=== PATIENT | female | born 1955 | race Two or more races ===

== ENCOUNTER 2019-03-11 17:18 | Inpatient (IN) | payer MEDICARE, MEDICAID ==
[~2019-03-11] VITALS: Ht 180.3 cm; Wt 68.9 kg
[2019-03-11] MEDS ORDERED: METF-414 PO (17:28)
[2019-03-11] MEDS ORDERED: SODIUM CHLORIDE 0.9% 1,000 ML IV ONE ×2 (18:23→21:47)
[2019-03-11] MEDS ORDERED: MORPHINE SULFATE 4 MG/ML CPJ (NOT FOR IM USE) IV STA (18:23)
[2019-03-11] MEDS ORDERED: ONDANSETRON HCL 4MG/2ML INJ IV STA (18:23)
[2019-03-11] MEDS ORDERED: FAMOTIDINE 20MG/2ML VIAL IV STA (18:23)
[2019-03-11 19:29] LABS: BASOPHILS % 0.3 % (0.0-2.0); EOSINOPHILS % 0.3 % (0.0-5.0); HEMATOCRIT. 37.6 % (36.0-48.0); HEMOGLOBIN. 12.4 g/dL (12.0-16.0); LYMPHOCYTES % 9.9 % (20.0-50.0); MEAN CORPUSCULAR HEMOGLOBIN 32.7 pg (28.0-32.0); MEAN CORPUSCULAR VOLUME 99.1 fL (81.0-99.0); MEAN PLATELET VOLUME 9.6 fl (7.4-10.4); MONOCYTES % 6.9 % (2.0-8.0); NEUTROPHILS % 82.6 % (40.0-76.0); PLATELET 207 x1000/uL (130-400); RED CELL DISTRIBUTION WIDTH 17.6 % (11.6-14.6)
[2019-03-11 19:30] LABS: CHLORIDE 109 mEq/L (98-107)
[2019-03-11 19:31] LABS: INR 1.4
[2019-03-11] MEDS ORDERED: ASPIRIN 325MG EC TABLET PO ONE (20:15)
[2019-03-11] MEDS ORDERED: DILTIAZEM HCL 5MG/ML 5ML VIAL IV ONE (20:15)
[2019-03-11] MEDS ORDERED: DILTIAZEM HCL 125 MG in DEXT 5% WATER 100 ML IV PRN (21:30)
[2019-03-11] MEDS ORDERED: HYDROCODONE/ACETAMINOPHEN 10/325MG TABLET PO PRN (21:30)
[2019-03-11] MEDS ORDERED: CLONIDINE 0.1MG TABLET PO PRN (21:30)
[2019-03-11] MEDS ORDERED: DIPHENHYDRAMINE 50MG/ML VIAL IV PRN (21:30)
[2019-03-11] MEDS ORDERED: MAGNESIUM/ALUMINUM HYDROXIDE/SIMETHICONE 30ML UDC PO PRN (21:30)
[2019-03-11] MEDS ORDERED: LORAZEPAM 2MG/ML CPJ IV PRN (21:30)
[2019-03-11] MEDS ORDERED: NA PHOS,M-B/NA PHOS,DI-BA ENEMA 118ML PR PRN (21:30)
[2019-03-11] MEDS ORDERED: DOCUSATE SODIUM 100MG CAPSULE PO PRN (21:30)
[2019-03-11] MEDS ORDERED: IPRATROPIUM/ALBUTEROL 0.5-3(2.5)MG/3ML NEB NEB PRN (21:30)
[2019-03-11] MEDS ORDERED: HYDRALAZINE 20MG/ML VIAL IV PRN (21:30)
[2019-03-11] MEDS ORDERED: DEXTROSE 50% WATER 50ML SYRINGE IV PRN (21:30)
[2019-03-11] MEDS ORDERED: ACETAMINOPHEN 325MG TABLET PO PRN (21:30)
[2019-03-11] MEDS ORDERED: MORPHINE SULFATE 2 MG/ML CPJ (NOT FOR IM USE) IV PRN (21:30)
[2019-03-11] MEDS ORDERED: PIPERACILLIN/TAZ 3.375G PREMIX 50 ML IV ONE (21:45)
[2019-03-11] MEDS ORDERED: KCL 10MEQ/50ML PREMIX 50 ML IV ONE (22:15)
[2019-03-11] MEDS: GUAIFENESIN 200MG/10ML SUGAR FREE UDC PO PRN (22:38)
[2019-03-11 23:18] LABS: CREATINE KINASE 52 IU/L (26-192)
[2019-03-11 23:19] LABS: CREATINE KINASE MB FRACTION < 1.0 ng/mL (0.5-3.6)
[2019-03-11 23:39] VITALS: BP 145/76
[2019-03-12] VITALS (13 sets, daily range): BP systolic 94–149; BP diastolic 54–88
[2019-03-12] MEDS: DEXT 5%/0.45% NACL 1000ML 1,000 ML IV SCH ×2 (00:37→14:43)
[2019-03-12] MEDS ORDERED: POTASSIUM CHLORIDE INJ 40 MEQ in DEXT 5% WATER 250 ML IV NR (02:00)
[2019-03-12] MEDS: INSULIN LISPRO 100 UNITS/ML SUBCUT SCH ×3 (05:59→16:27)
[2019-03-12] MEDS: BLOOD SUGAR DIAGNOSTIC STRIP TEST SCH ×3 (05:59→16:27)
[2019-03-12] MEDS: SODIUM CHLORIDE 0.9% INJ 3ML FLUSH IVF SCH ×3 (06:00→22:28)
[2019-03-12] MEDS ORDERED: DILTIAZEM HCL 5MG/ML 5ML VIAL IV ONE (06:30)
[2019-03-12] MEDS: DILTIAZEM HCL 125 MG in DEXT 5% WATER 100 ML IV SCH (06:42)
[2019-03-12] MEDS ORDERED: SKIN ADHESIVE 0.7 GM EA TOP ONE (06:47)
[2019-03-12] MEDS ORDERED: BUPIVACAINE HCL 0.5% (5MG/ML) 50ML ONE (06:47)
[2019-03-12 07:21] LABS: HEMATOCRIT. 35.4 % (36.0-48.0); HEMOGLOBIN. 11.6 g/dL (12.0-16.0); MEAN CORPUSCULAR HEMOGLOBIN 32.6 pg (28.0-32.0); MEAN CORPUSCULAR VOLUME 99.3 fL (81.0-99.0); MEAN PLATELET VOLUME 9.6 fl (7.4-10.4); PLATELET 181 x1000/uL (130-400); RED BLOOD CELL COUNT 3.57 mill/uL (4.2-5.4); RED CELL DISTRIBUTION WIDTH 17.2 % (11.6-14.6)
[2019-03-12] MEDS ORDERED: DIATR MEGLU/DIATRIZOATE SOLN 30ML PO SCH (07:30)
[2019-03-12 07:35] LABS: CHLORIDE 109 mEq/L (98-107)
[2019-03-12] MEDS ORDERED: DIATR MEGLU/DIATRIZOATE SOLN 120ML ONE (07:51)
[2019-03-12 07:54] LABS: LDL CHOLESTEROL 86 mg/dL (5-100)
[2019-03-12 07:55] LABS: CREATINE KINASE 53 IU/L (26-192)
[2019-03-12 07:56] LABS: T4 FREE 1.42 ng/dL (0.76-1.46)
[2019-03-12 07:58] LABS: CREATINE KINASE MB FRACTION < 1.0 ng/mL (0.5-3.6); HDL CHOLESTEROL 23 mg/dL (40-59)
[2019-03-12 12:16] LABS: PLATELET ESTIMATE NORMAL
[2019-03-12] MEDS: ENOXAPARIN 40MG/0.4ML SYR SUBCUT SCH (13:08)
[2019-03-13] VITALS (12 sets, daily range): BP systolic 95–137; BP diastolic 42–83
[2019-03-13] MEDS: INSULIN LISPRO 100 UNITS/ML SUBCUT SCH ×4 (00:18→17:23)
[2019-03-13] MEDS: DEXT 5%/0.45% NACL 1000ML 1,000 ML IV SCH ×2 (04:01→19:03)
[2019-03-13] MEDS: SODIUM CHLORIDE 0.9% INJ 3ML FLUSH IVF SCH ×3 (05:04→21:03)
[2019-03-13] MEDS: DILTIAZEM HCL 125 MG in DEXT 5% WATER 100 ML IV SCH (05:04)
[2019-03-13] MEDS: BLOOD SUGAR DIAGNOSTIC STRIP TEST SCH ×4 (05:50→17:24)
[2019-03-13] MEDS ORDERED: DILTIAZEM HCL 125 MG in DEXT 5% WATER 100 ML IV SCH (06:31)
[2019-03-13 07:02] LABS: HEMOGLOBIN. 10.4 g/dL (12.0-16.0); MEAN CORPUSCULAR HEMOGLOBIN 32.6 pg (28.0-32.0); MEAN CORPUSCULAR VOLUME 97.2 fL (81.0-99.0); MEAN PLATELET VOLUME 9.2 fl (7.4-10.4); PLATELET 175 x1000/uL (130-400); RED BLOOD CELL COUNT 3.19 mill/uL (4.2-5.4); RED CELL DISTRIBUTION WIDTH 16.6 % (11.6-14.6)
[2019-03-13] MEDS: PANTOPRAZOLE 40MG DR TABLET PO SCH (07:05)
[2019-03-13] MEDS: DILTIAZEM HCL 30MG TABLET PO SCH ×3 (07:06→21:03)
[2019-03-13] MEDS: ENOXAPARIN 40MG/0.4ML SYR SUBCUT SCH (08:04)
[2019-03-13] MEDS: GUAIFENESIN 200MG/10ML SUGAR FREE UDC PO PRN ×2 (08:07→19:25)
[2019-03-13 13:47] LABS: PLATELET ESTIMATE NORMAL
[2019-03-13 14:09] LABS: GAMMA GLUTAMYL TRANSPEPTIDASE 137 IU/L (7-32)
[2019-03-13 14:12] LABS: TOTAL IRON BINDING CAPACITY 174 ug/dL (250-450)
[2019-03-13 14:22] LABS: FERRITIN 292 ng/mL (10-291); HEPATITIS B SURFACE AB < 3.1 mIU/mL
[2019-03-13 14:33] LABS: HEPATITIS B SURFACE ANTIGEN NEGATIVE
[2019-03-13 14:37] LABS: VITAMIN B12 SERUM 1463 pg/mL (211-911)
[2019-03-13 15:02] LABS: HEPATITIS A AB IGM NEGATIVE (NEGATIVE)
[2019-03-13] MEDS ORDERED: POTASSIUM CHLORIDE 20MEQ TABLET SR PO NR (18:00)
[2019-03-13] MEDS: SUCRALFATE 1 G/10 ML UDC PO SCH (21:03)
[2019-03-14] VITALS (11 sets, daily range): BP systolic 92–138; BP diastolic 54–81
[2019-03-14] MEDS: INSULIN LISPRO 100 UNITS/ML SUBCUT SCH ×4 (06:00→16:58)
[2019-03-14] MEDS: BLOOD SUGAR DIAGNOSTIC STRIP TEST SCH ×4 (06:00→16:55)
[2019-03-14] MEDS: SUCRALFATE 1 G/10 ML UDC PO SCH ×5 (06:12→21:34)
[2019-03-14] MEDS: PANTOPRAZOLE 40MG DR TABLET PO SCH (06:13)
[2019-03-14] MEDS: DEXT 5%/0.45% NACL 1000ML 1,000 ML IV SCH ×2 (06:14→21:40)
[2019-03-14] MEDS: DILTIAZEM HCL 30MG TABLET PO SCH ×3 (06:14→21:34)
[2019-03-14] MEDS: SODIUM CHLORIDE 0.9% INJ 3ML FLUSH IVF SCH ×2 (06:14→14:00)
[2019-03-14 07:18] LABS: CHLORIDE 111 mEq/L (98-107)
[2019-03-14 07:46] LABS: BASOPHILS % 0.1 % (0.0-2.0); EOSINOPHILS % 3.9 % (0.0-5.0); HEMATOCRIT. 31.7 % (36.0-48.0); HEMOGLOBIN. 10.7 g/dL (12.0-16.0); LYMPHOCYTES % 7.3 % (20.0-50.0); MEAN CORPUSCULAR HEMOGLOBIN 32.6 pg (28.0-32.0); MEAN PLATELET VOLUME 9.2 fl (7.4-10.4); NEUTROPHILS % 82.7 % (40.0-76.0); PLATELET 176 x1000/uL (130-400); RED BLOOD CELL COUNT 3.27 mill/uL (4.2-5.4); RED CELL DISTRIBUTION WIDTH 16.4 % (11.6-14.6)
[2019-03-14] MEDS: ENOXAPARIN 40MG/0.4ML SYR SUBCUT SCH (08:02)
[2019-03-14] MEDS: GUAIFENESIN 200MG/10ML SUGAR FREE UDC PO PRN ×2 (08:36→21:45)
[2019-03-14] MEDS: ONDANSETRON HCL 4MG/2ML INJ IV PRN ×2 (21:39→21:40)
[2019-03-15] VITALS (9 sets, daily range): BP systolic 102–138; BP diastolic 50–87
[2019-03-15] MEDS: SODIUM CHLORIDE 0.9% INJ 3ML FLUSH IVF SCH ×3 (06:00→22:00)
[2019-03-15] MEDS: INSULIN LISPRO 100 UNITS/ML SUBCUT SCH ×4 (06:00→17:11)
[2019-03-15] MEDS: DILTIAZEM HCL 30MG TABLET PO SCH ×3 (06:00→22:00)
[2019-03-15] MEDS: BLOOD SUGAR DIAGNOSTIC STRIP TEST SCH ×4 (06:00→17:11)
[2019-03-15] MEDS: SUCRALFATE 1 G/10 ML UDC PO SCH ×4 (06:50→21:59)
[2019-03-15] MEDS: PANTOPRAZOLE 40MG DR TABLET PO SCH (06:50)
[2019-03-15 08:54] LABS: CHLORIDE 113 mEq/L (98-107)
[2019-03-15 09:03] LABS: INR 1.3; PARTIAL THROMBOPLASTIN TIME 34.7 sec (23.4-31.0); PROTHROMBIN TIME 13.1 sec (9.6-11.0)
[2019-03-15 09:07] LABS: FOLATE HEMATOCRIT 33.1 % (34.0-46.6)
[2019-03-15 09:07] LABS: CA 19-9 26 U/mL (0-35)
[2019-03-15 10:12] LABS: BASOPHILS % 0.3 % (0.0-2.0); EOSINOPHILS % 5.1 % (0.0-5.0); HEMATOCRIT. 35.7 % (36.0-48.0); HEMOGLOBIN. 11.7 g/dL (12.0-16.0); LYMPHOCYTES % 14.9 % (20.0-50.0); MEAN CORPUSCULAR HEMOGLOBIN 32.8 pg (28.0-32.0); MEAN CORPUSCULAR VOLUME 100.2 fL (81.0-99.0); MEAN PLATELET VOLUME 9.5 fl (7.4-10.4); MONOCYTES % 8.4 % (2.0-8.0); NEUTROPHILS % 71.3 % (40.0-76.0); PLATELET 172 x1000/uL (130-400); RED BLOOD CELL COUNT 3.56 mill/uL (4.2-5.4); RED CELL DISTRIBUTION WIDTH 17.3 % (11.6-14.6)
[2019-03-15] MEDS: DEXT 5%/0.45% NACL 1000ML 1,000 ML IV SCH ×2 (10:38→21:59)
[2019-03-15] MEDS ORDERED: FENTANYL CITRATE/PF 50MCG/ML 2ML VIAL ONE (12:57)
[2019-03-15] MEDS ORDERED: MIDAZOLAM HCL 5 MG/5 ML VIAL ONE (12:57)
[2019-03-15] MEDS ORDERED: MIDAZOLAM HCL 5 MG/5 ML VIAL IV PRN (13:00)
[2019-03-15] MEDS ORDERED: FENTANYL CITRATE/PF 50MCG/ML 2ML VIAL IV PRN (13:01)
[2019-03-15] MEDS ORDERED: SIMETHICONE 40 MG/0.6 ML 30ML ONE (13:02)
[2019-03-15 14:12] LABS: FOLATE RBC 1640 ng/mL (>498)
[2019-03-15] MEDS: GUAIFENESIN 200MG/10ML SUGAR FREE UDC PO PRN (17:16)
[2019-03-16] VITALS (9 sets, daily range): BP systolic 92–127; BP diastolic 45–76
[2019-03-16] MEDS: BLOOD SUGAR DIAGNOSTIC STRIP TEST SCH ×3 (00:01→12:45)
[2019-03-16] MEDS: GUAIFENESIN 200MG/10ML SUGAR FREE UDC PO PRN (00:18)
[2019-03-16] MEDS: INSULIN LISPRO 100 UNITS/ML SUBCUT SCH ×3 (05:09→12:00)
[2019-03-16] MEDS: SODIUM CHLORIDE 0.9% INJ 3ML FLUSH IVF SCH ×2 (05:09→14:00)
[2019-03-16] MEDS: DILTIAZEM HCL 30MG TABLET PO SCH ×2 (05:45→14:45)
[2019-03-16] MEDS: PANTOPRAZOLE 40MG DR TABLET PO SCH (05:50)
[2019-03-16] MEDS: SUCRALFATE 1 G/10 ML UDC PO SCH ×2 (05:50→12:45)
[2019-03-16 06:13] LABS: CHLORIDE 114 mEq/L (98-107)
[2019-03-16 06:14] LABS: BASOPHILS % 0.6 % (0.0-2.0); EOSINOPHILS % 4.9 % (0.0-5.0); HEMATOCRIT. 34.6 % (36.0-48.0); HEMOGLOBIN. 11.5 g/dL (12.0-16.0); MEAN CORPUSCULAR HEMOGLOBIN 32.8 pg (28.0-32.0); MEAN CORPUSCULAR VOLUME 98.6 fL (81.0-99.0); MEAN PLATELET VOLUME 8.6 fl (7.4-10.4); MONOCYTES % 10.6 % (2.0-8.0); NEUTROPHILS % 67.9 % (40.0-76.0); PLATELET 198 x1000/uL (130-400); RED CELL DISTRIBUTION WIDTH 16.9 % (11.6-14.6)
[2019-03-16] MEDS: ONDANSETRON HCL 4MG/2ML INJ IV PRN (07:58)
[2019-03-16 08:12] LABS: MITOCHONDRIAL M2 AB <20.0 Units (0.0-20.0)
[2019-03-16] MEDS: ENOXAPARIN 40MG/0.4ML SYR SUBCUT SCH (12:45)
[2019-03-16] MEDS: DEXT 5%/0.45% NACL 1000ML 1,000 ML IV SCH (12:46)
[2019-03-29] MEDS ORDERED: OMEP20CA5 MT (11:27)
== END 2019-03-16 19:04 | disposition home or self-care (01) | DRG 392 ==
LOC: ER 17:18 → 3WST 20:41 → EDBEDREQTM 20:47 → EDBEDREQ 20:47 → ENRESERV 22:21 → 3WST 03-16 14:06
PROVIDERS: ADMIT Internal Medicine; ATTEND Internal Medicine
PROC: 0DB78ZX Excision of Stomach, Pylorus, Via Natural or Artificial Opening Endoscopic, Diagnostic (ICD-10-PCS; principal; 2019-03-15)
DX: K29.70 Gastritis, unspecified, without bleeding (principal); I31.3 Pericardial effusion (noninflammatory); E44.0 Moderate protein-calorie malnutrition; I48.91 Unspecified atrial fibrillation; E11.9 Type 2 diabetes mellitus without complications; I50.9 Heart failure, unspecified; I11.0 Hypertensive heart disease with heart failure; K21.9 Gastro-esophageal reflux disease without esophagitis; K57.90 Diverticulosis of intestine, part unspecified, without perforation or abscess without bleeding; E87.6 Hypokalemia; F20.9 Schizophrenia, unspecified; K80.20 Calculus of gallbladder without cholecystitis without obstruction; K76.0 Fatty (change of) liver, not elsewhere classified; R16.2 Hepatomegaly with splenomegaly, not elsewhere classified; K44.9 Diaphragmatic hernia without obstruction or gangrene; D64.9 Anemia, unspecified; D72.825 Bandemia; F17.200 Nicotine dependence, unspecified, uncomplicated; F41.9 Anxiety disorder, unspecified; F31.9 Bipolar disorder, unspecified; I27.20 Pulmonary hypertension, unspecified; I34.0 Nonrheumatic mitral (valve) insufficiency; J44.9 Chronic obstructive pulmonary disease, unspecified; R13.10 Dysphagia, unspecified; Z79.4 Long term (current) use of insulin; Z82.49 Family history of ischemic heart disease and other diseases of the circulatory system; Z79.899 Other long term (current) drug therapy; Z68.21 Body mass index [BMI] 21.0-21.9, adult
CPT/HCPCS: 36415; 71045; 74176; 74177; 76700; 80048; 80053; 80061; 80076; 82140; 82248; 82270; 82550; 82553; 82607; 82728; 82747; 82962; 82977; 83516; 83540; 83550; 83605; 83735; 84439; 84443; 84484; 85014; 85025; 86301; 86705; 86706; 86709; 86803; 87015; 87045; 87340; 87427; 87449; 88305; 88312; 88313; 89055; 93005; 93306; 93970; 96361; 96365; 96375; 99291; J1200; J1650; J1815; J2060; J2250; J2270; J2405; J2543; J3010; J3480; J3490; J7030; J7060; J7620; Q9963

== ENCOUNTER 2019-03-29 01:11 | Inpatient (IN) | payer MEDICARE, MEDICAID ==
[~2019-03-29] VITALS: Ht 162.6 cm; Wt 72.1 kg
[~2019-03-29 01:11] MED LIST: METF-414 PO
[2019-03-29] MEDS ORDERED: DILTIAZEM HCL 5MG/ML 5ML VIAL IV ONE (08:00)
[2019-03-29 08:17] LABS: HEMOGLOBIN. 13.9 g/dL (12.0-16.0); MEAN CORPUSCULAR HEMOGLOBIN 31.7 pg (28.0-32.0); MEAN CORPUSCULAR VOLUME 98.5 fL (81.0-99.0); MEAN PLATELET VOLUME 9.4 fl (7.4-10.4); PLATELET 193 x1000/uL (130-400); RED BLOOD CELL COUNT 4.37 mill/uL (4.2-5.4); RED CELL DISTRIBUTION WIDTH 17.3 % (11.6-14.6)
[2019-03-29 08:25] LABS: CHLORIDE 107 mEq/L (98-107); INR 1.6; PROTHROMBIN TIME 16.7 sec (9.6-11.0)
[2019-03-29] MEDS ORDERED: LEVOFLOXACIN 750MG PREMIX 150 ML IV ONE (08:30)
[2019-03-29] MEDS ORDERED: DILTIAZEM HCL 60MG TABLET PO ONE (08:30)
[2019-03-29] MEDS ORDERED: BENZONATATE 100MG CAPSULE PO ONE (08:30)
[2019-03-29 08:48] LABS: PLATELET ESTIMATE NORMAL
[2019-03-29] MEDS ORDERED: FUROSEMIDE 40MG/4ML VIAL IVP ONE (09:15)
[2019-03-29 10:40] VITALS: BP 97/66
[2019-03-29] MEDS ORDERED: OMEP20CA14 MT (11:27)
[2019-03-29] MEDS ORDERED: RISP2TAB22 MT (11:27)
[2019-03-29] MEDS ORDERED: ASPI-1158 MT (11:27)
[2019-03-29] MEDS ORDERED: FERR325T6 MT (11:27)
[2019-03-29] MEDS ORDERED: DILT30TA3 MT (11:27)
[2019-03-29] MEDS ORDERED: CLOP75TA33 MT (11:27)
[2019-03-29 12:00] VITALS: BP 96/59
[2019-03-29] MEDS ORDERED: CLONIDINE 0.1MG TABLET PO PRN (13:30)
[2019-03-29] MEDS ORDERED: ACETAMINOPHEN 325MG TABLET PO PRN (13:30)
[2019-03-29] MEDS ORDERED: HYDROCODONE/ACETAMINOPHEN 5/325MG TABLET PO PRN (13:30)
[2019-03-29] MEDS ORDERED: IPRATROPIUM/ALBUTEROL 0.5-3(2.5)MG/3ML NEB HHN PRN (13:30)
[2019-03-29] MEDS ORDERED: CEFTRIAXONE 1 G PREMIX 50 ML IV SCH (13:30)
[2019-03-29] MEDS ORDERED: DOCUSATE SODIUM 100MG CAPSULE PO PRN (13:30)
[2019-03-29] MEDS ORDERED: AZITHROMYCIN 500 MG in DEXT 5% WATER 250 ML IV SCH (13:30)
[2019-03-29] MEDS ORDERED: POTASSIUM CHLORIDE 20MEQ TABLET SR PO SCH (13:30)
[2019-03-29 16:00] VITALS: BP 103/59
[2019-03-29] MEDS: GUAIFENESIN 200MG/10ML SUGAR FREE UDC PO PRN (16:23)
[2019-03-29] MEDS: DILTIAZEM HCL 30MG TABLET PO SCH ×3 (16:28→23:42)
[2019-03-29] MEDS: CEFTRIAXONE 1 G PREMIX 50 ML IV SCH (16:29)
[2019-03-29] MEDS: FUROSEMIDE 40MG/4ML VIAL IVP SCH ×2 (16:29→17:15)
[2019-03-29] MEDS: AZITHROMYCIN 500 MG in DEXT 5% WATER 250 ML IV SCH (18:00)
[2019-03-29] MEDS ORDERED: DEXTROSE 50% WATER 50ML SYRINGE IV PRN (18:00)
[2019-03-29] MEDS: BLOOD SUGAR DIAGNOSTIC STRIP TEST SCH ×2 (18:09→21:00)
[2019-03-29] MEDS: METRONIDAZOLE 500 MG PREMIX 100 ML IV SCH ×2 (18:14→22:21)
[2019-03-29] MEDS: INSULIN LISPRO 100 UNITS/ML SUBCUT SCH ×2 (18:16→21:00)
[2019-03-29] MEDS: RISPERIDONE 1MG TABLET PO SCH (22:21)
[2019-03-30] VITALS (7 sets, daily range): BP systolic 91–108; BP diastolic 52–84
[2019-03-30] MEDS: FUROSEMIDE 40MG/4ML VIAL IVP SCH ×2 (05:36→17:25)
[2019-03-30] MEDS: DILTIAZEM HCL 30MG TABLET PO SCH ×3 (05:36→18:10)
[2019-03-30] MEDS: METRONIDAZOLE 500 MG PREMIX 100 ML IV SCH ×3 (05:36→21:34)
[2019-03-30] MEDS: INSULIN LISPRO 100 UNITS/ML SUBCUT SCH ×4 (06:31→21:00)
[2019-03-30] MEDS: BLOOD SUGAR DIAGNOSTIC STRIP TEST SCH ×4 (06:31→21:34)
[2019-03-30] MEDS: OMEPRAZOLE 20MG CAPSULE EXTENDED RELEASE PO SCH (07:08)
[2019-03-30] MEDS ORDERED: DILTIAZEM HCL 30MG TABLET PO SCH (09:00)
[2019-03-30 09:18] LABS: BASOPHILS % 0.2 % (0.0-2.0); EOSINOPHILS % 0.1 % (0.0-5.0); HEMATOCRIT. 38.8 % (36.0-48.0); HEMOGLOBIN. 12.4 g/dL (12.0-16.0); LYMPHOCYTES % 7.2 % (20.0-50.0); MEAN CORPUSCULAR HEMOGLOBIN 31.8 pg (28.0-32.0); MEAN CORPUSCULAR VOLUME 99.7 fL (81.0-99.0); MONOCYTES % 6.4 % (2.0-8.0); NEUTROPHILS % 86.1 % (40.0-76.0); PLATELET 106 x1000/uL (130-400); RED BLOOD CELL COUNT 3.89 mill/uL (4.2-5.4); RED CELL DISTRIBUTION WIDTH 17.2 % (11.6-14.6)
[2019-03-30 09:21] LABS: CHLORIDE 106 mEq/L (98-107)
[2019-03-30 09:29] LABS: PHOSPHORUS 2.5 mg/dL (2.5-4.9)
[2019-03-30 09:31] LABS: CREATINE KINASE 30 IU/L (26-192); CREATINE KINASE MB FRACTION < 1.0 ng/mL (0.5-3.6)
[2019-03-30] MEDS: CLOPIDOGREL 75MG TABLET PO SCH (09:35)
[2019-03-30] MEDS: POTASSIUM CHLORIDE 20MEQ TABLET SR PO SCH ×2 (09:35→17:26)
[2019-03-30] MEDS: ASPIRIN 81MG EC TABLET PO SCH (09:35)
[2019-03-30] MEDS: CEFTRIAXONE 1 G PREMIX 50 ML IV SCH (11:01)
[2019-03-30] MEDS: AZITHROMYCIN 500 MG in DEXT 5% WATER 250 ML IV SCH (11:01)
[2019-03-30] MEDS ORDERED: DIGOXIN 500MCG/2ML AMP IV NR (16:39)
[2019-03-30] MEDS ORDERED: POTASSIUM CHLORIDE 20MEQ TABLET SR PO NR ×2 (16:40→21:00)
[2019-03-30] MEDS ORDERED: MAGNESIUM 2 G PREMIX 50 ML IV NR (18:00)
[2019-03-30] MEDS: RISPERIDONE 1MG TABLET PO SCH (21:33)
[2019-03-31] VITALS (29 sets, daily range): BP systolic 76–135; BP diastolic 17–85
[2019-03-31] MEDS: DILTIAZEM HCL 30MG TABLET PO SCH ×5 (00:42→23:49)
[2019-03-31] MEDS: METRONIDAZOLE 500 MG PREMIX 100 ML IV SCH ×3 (06:00→21:51)
[2019-03-31] MEDS: GUAIFENESIN 200MG/10ML SUGAR FREE UDC PO PRN ×2 (06:08→21:14)
[2019-03-31] MEDS: FUROSEMIDE 40MG/4ML VIAL IVP SCH ×2 (06:56→17:15)
[2019-03-31] MEDS: INSULIN LISPRO 100 UNITS/ML SUBCUT SCH ×3 (08:10→21:15)
[2019-03-31] MEDS: ASPIRIN 81MG EC TABLET PO SCH (08:26)
[2019-03-31] MEDS: CLOPIDOGREL 75MG TABLET PO SCH (08:26)
[2019-03-31] MEDS: OMEPRAZOLE 20MG CAPSULE EXTENDED RELEASE PO SCH (08:26)
[2019-03-31] MEDS: POTASSIUM CHLORIDE 20MEQ TABLET SR PO SCH ×2 (08:26→17:00)
[2019-03-31] MEDS: BLOOD SUGAR DIAGNOSTIC STRIP TEST SCH ×3 (08:26→21:11)
[2019-03-31 09:58] LABS: HEMATOCRIT. 38.7 % (36.0-48.0); HEMOGLOBIN. 12.6 g/dL (12.0-16.0); MEAN CORPUSCULAR HEMOGLOBIN 32.2 pg (28.0-32.0); MEAN CORPUSCULAR VOLUME 98.6 fL (81.0-99.0); MEAN PLATELET VOLUME 9.1 fl (7.4-10.4); PLATELET 164 x1000/uL (130-400); RED BLOOD CELL COUNT 3.93 mill/uL (4.2-5.4); RED CELL DISTRIBUTION WIDTH 17.4 % (11.6-14.6)
[2019-03-31 10:06] LABS: CHLORIDE 104 mEq/L (98-107)
[2019-03-31] MEDS ORDERED: MAGNESIUM 2 G PREMIX 50 ML IV SCH (11:15)
[2019-03-31 11:45] LABS: PLATELET ESTIMATE NORMAL
[2019-03-31] MEDS ORDERED: SODIUM BICARBONATE 4% (2.4MEQ) 5ML VIAL IV ONE (13:15)
[2019-03-31] MEDS ORDERED: LIDOCAINE HCL 1% 20ML VIAL (Pyxis) INJ ONE (13:34)
[2019-03-31] MEDS: CEFTRIAXONE 1 G PREMIX 50 ML IV SCH (14:22)
[2019-03-31] MEDS: AZITHROMYCIN 500 MG in DEXT 5% WATER 250 ML IV SCH (14:23)
[2019-03-31 16:53] LABS: HEMATOCRIT. 37.2 % (36.0-48.0); MEAN CORPUSCULAR HEMOGLOBIN 31.9 pg (28.0-32.0); MEAN PLATELET VOLUME 9.8 fl (7.4-10.4); PLATELET 150 x1000/uL (130-400); RED BLOOD CELL COUNT 3.76 mill/uL (4.2-5.4)
[2019-03-31 17:24] LABS: PLATELET ESTIMATE NORMAL
[2019-03-31] MEDS ORDERED: NOREPINEPHRINE 4MG/250ML PMX 250 ML IV ONE (18:00)
[2019-03-31] MEDS ORDERED: NOREPINEPHRINE 8 MG in DEXT 5% WATER 242 ML IV PRN (18:08)
[2019-03-31] MEDS ORDERED: FUROSEMIDE 20MG/2ML VIAL IVP NR (18:15)
[2019-03-31] MEDS ORDERED: NOREPINEPHRINE 4MG in DEXT 5% WATER 250ML IV PRN (18:15)
[2019-03-31] MEDS: RISPERIDONE 1MG TABLET PO SCH (21:14)
[2019-03-31] MEDS ORDERED: NOREPINEPHRINE 16 MG in DEXT 5% WATER 234 ML IV PRN (23:15)
[2019-04-01] VITALS (84 sets, daily range): BP systolic 86–160; BP diastolic 22–110
[2019-04-01] MEDS: DILTIAZEM HCL 30MG TABLET PO SCH ×2 (06:00→12:00)
[2019-04-01] MEDS: GUAIFENESIN 200MG/10ML SUGAR FREE UDC PO PRN (06:09)
[2019-04-01] MEDS: OMEPRAZOLE 20MG CAPSULE EXTENDED RELEASE PO SCH (06:09)
[2019-04-01] MEDS: METRONIDAZOLE 500 MG PREMIX 100 ML IV SCH ×3 (06:09→22:09)
[2019-04-01 06:18] LABS: HEMATOCRIT. 36.2 % (36.0-48.0); HEMOGLOBIN. 11.8 g/dL (12.0-16.0); MEAN CORPUSCULAR HEMOGLOBIN 31.8 pg (28.0-32.0); MEAN CORPUSCULAR VOLUME 97.7 fL (81.0-99.0); MEAN PLATELET VOLUME 10.2 fl (7.4-10.4); PLATELET 183 x1000/uL (130-400); RED BLOOD CELL COUNT 3.71 mill/uL (4.2-5.4)
[2019-04-01] MEDS: BLOOD SUGAR DIAGNOSTIC STRIP TEST SCH ×4 (06:20→22:07)
[2019-04-01] MEDS: INSULIN LISPRO 100 UNITS/ML SUBCUT SCH ×4 (06:20→22:07)
[2019-04-01] MEDS: FUROSEMIDE 40MG/4ML VIAL IVP SCH (06:21)
[2019-04-01] MEDS: POTASSIUM CHLORIDE 20MEQ TABLET SR PO SCH ×2 (07:55→18:03)
[2019-04-01] MEDS: ASPIRIN 81MG EC TABLET PO SCH (07:55)
[2019-04-01] MEDS: CLOPIDOGREL 75MG TABLET PO SCH (07:55)
[2019-04-01] MEDS: AZITHROMYCIN 500 MG in DEXT 5% WATER 250 ML IV SCH (07:55)
[2019-04-01] MEDS: CEFTRIAXONE 1 G PREMIX 50 ML IV SCH (10:00)
[2019-04-01 10:30] LABS: PLATELET ESTIMATE NORMAL
[2019-04-01 11:05] LABS: BG CARBOXYHEMOGLOBIN 1.1 % (0.5-1.5); BG DEOXYHEMOGLOBIN 7.3 % (0.0-5.0); BG HCO3 ACT 22.3 mmol/L (22.0-26.0); BG METHEMOGLOBIN 0.3 % (0.0-1.5); BG OXYGEN SATURATION 92.6 % (92.0-98.5); BG OXYHEMOGLOBIN 91.3 % (94.0-97.0); BG PH 7.447 (7.350-7.450); BG PO2 66.1 mmHg (75.0-100.0); BG SAMPLE SITE RIGHT BRACHIAL; BG TOTAL HEMOGLOBIN 13.2 g/dL (12.0-18.0); BG VENT MODE ROOM AIR
[2019-04-01] MEDS ORDERED: IOHEXOL-350 100 ML BOTTLE ONE (11:59)
[2019-04-01] MEDS: VANCOMYCIN HCL 1000 MG/20 ML ORAL PO SCH ×3 (12:10→23:38)
[2019-04-01] MEDS ORDERED: DIGOXIN 500MCG/2ML AMP IV SCH (14:10)
[2019-04-01] MEDS ORDERED: PHENYLEPHRINE 40 MG in DEXT 5% WATER 246 ML IV PRN (15:00)
[2019-04-01] MEDS ORDERED: DILTIAZEM HCL 125 MG in DEXT 5% WATER 100 ML IV PRN (15:00)
[2019-04-01] MEDS: ENOXAPARIN 80MG/0.8ML SYR SUBCUT SCH ×2 (15:16→23:40)
[2019-04-01] MEDS: RISPERIDONE 1MG TABLET PO SCH (22:04)
[2019-04-02] VITALS (59 sets, daily range): BP systolic 86–134; BP diastolic 41–102
[2019-04-02] MEDS: INSULIN LISPRO 100 UNITS/ML SUBCUT SCH ×5 (05:44→21:00)
[2019-04-02] MEDS: BLOOD SUGAR DIAGNOSTIC STRIP TEST SCH ×4 (05:44→21:11)
[2019-04-02] MEDS: VANCOMYCIN HCL 1000 MG/20 ML ORAL PO SCH ×3 (06:07→18:25)
[2019-04-02] MEDS: METRONIDAZOLE 500 MG PREMIX 100 ML IV SCH ×3 (06:07→21:47)
[2019-04-02] MEDS: OMEPRAZOLE 20MG CAPSULE EXTENDED RELEASE PO SCH (06:07)
[2019-04-02 07:51] LABS: BASOPHILS % 0.2 % (0.0-2.0); EOSINOPHILS % 0.6 % (0.0-5.0); HEMATOCRIT. 36.4 % (36.0-48.0); HEMOGLOBIN. 11.5 g/dL (12.0-16.0); LYMPHOCYTES % 7.5 % (20.0-50.0); MEAN CORPUSCULAR HEMOGLOBIN 31.2 pg (28.0-32.0); MEAN CORPUSCULAR VOLUME 98.7 fL (81.0-99.0); MEAN PLATELET VOLUME 9.1 fl (7.4-10.4); MONOCYTES % 5.9 % (2.0-8.0); NEUTROPHILS % 85.8 % (40.0-76.0); PLATELET 143 x1000/uL (130-400); RED BLOOD CELL COUNT 3.69 mill/uL (4.2-5.4); RED CELL DISTRIBUTION WIDTH 17.1 % (11.6-14.6)
[2019-04-02 08:54] LABS: CLARITY URINE CLOUDY (CLEAR); COLOR URINE YELLOW (YELLOW); KETONES URINE NEGATIVE (NEGATIVE); LEUKOCYTE ESTERASE URINE 3+ (NEGATIVE); NITRITE URINE NEGATIVE (NEGATIVE); OCCULT BLOOD URINE 2+ (NEGATIVE); PROTEIN URINE TRACE (NEGATIVE); SPECIFIC GRAVITY URINE 1.014 (1.005-1.030); UROBILINOGEN URINE 0.2 E.U./dL (0.2-1.0)
[2019-04-02] MEDS: ENOXAPARIN 80MG/0.8ML SYR SUBCUT SCH ×2 (09:59→21:12)
[2019-04-02] MEDS: POTASSIUM CHLORIDE 20MEQ TABLET SR PO SCH ×2 (09:59→16:50)
[2019-04-02] MEDS: ASPIRIN 81MG EC TABLET PO SCH (09:59)
[2019-04-02] MEDS: CEFTRIAXONE 1 G PREMIX 50 ML IV SCH (10:01)
[2019-04-02] MEDS: AZITHROMYCIN 500 MG in DEXT 5% WATER 250 ML IV SCH (10:01)
[2019-04-02] MEDS: DILTIAZEM HCL 60MG TABLET PO SCH ×2 (14:00→21:31)
[2019-04-02] MEDS ORDERED: MAGNESIUM 2 G PREMIX 50 ML IV SCH (18:30)
[2019-04-02] MEDS: RISPERIDONE 1MG TABLET PO SCH (21:11)
[2019-04-02] MEDS: LORAZEPAM 0.5MG TABLET PO PRN (21:47)
[2019-04-02] MEDS: GUAIFENESIN 200MG/10ML SUGAR FREE UDC PO PRN (21:50)
[2019-04-03] VITALS (12 sets, daily range): BP systolic 92–130; BP diastolic 60–78
[2019-04-03] MEDS: METRONIDAZOLE 500 MG PREMIX 100 ML IV SCH ×2 (05:35→13:30)
[2019-04-03] MEDS: DILTIAZEM HCL 60MG TABLET PO SCH ×3 (05:36→21:36)
[2019-04-03] MEDS: VANCOMYCIN HCL 1000 MG/20 ML ORAL PO SCH ×3 (05:47→17:11)
[2019-04-03] MEDS: FAMOTIDINE 40MG TABLET PO SCH (06:32)
[2019-04-03] MEDS: GUAIFENESIN 200MG/10ML SUGAR FREE UDC PO PRN (06:58)
[2019-04-03] MEDS: INSULIN LISPRO 100 UNITS/ML SUBCUT SCH ×4 (08:00→21:00)
[2019-04-03] MEDS: BLOOD SUGAR DIAGNOSTIC STRIP TEST SCH ×4 (08:01→21:00)
[2019-04-03 08:10] LABS: HEMATOCRIT. 36.1 % (36.0-48.0); HEMOGLOBIN. 11.7 g/dL (12.0-16.0); MEAN CORPUSCULAR VOLUME 98.8 fL (81.0-99.0); PLATELET 150 x1000/uL (130-400); RED BLOOD CELL COUNT 3.65 mill/uL (4.2-5.4); RED CELL DISTRIBUTION WIDTH 16.9 % (11.6-14.6)
[2019-04-03] MEDS: ENOXAPARIN 80MG/0.8ML SYR SUBCUT SCH ×2 (09:48→21:36)
[2019-04-03] MEDS: AZITHROMYCIN 500 MG in DEXT 5% WATER 250 ML IV SCH (09:48)
[2019-04-03] MEDS: ASPIRIN 81MG EC TABLET PO SCH (09:48)
[2019-04-03] MEDS: POTASSIUM CHLORIDE 20MEQ TABLET SR PO SCH ×2 (09:48→17:11)
[2019-04-03] MEDS: CEFTRIAXONE 1 G PREMIX 50 ML IV SCH (09:51)
[2019-04-03] MEDS: LORAZEPAM 0.5MG TABLET PO PRN (09:56)
[2019-04-03 12:25] LABS: PLATELET ESTIMATE NORMAL
[2019-04-03] MEDS: DIGOXIN 500MCG/2ML AMP IV SCH (17:11)
[2019-04-03] MEDS: RISPERIDONE 1MG TABLET PO SCH (21:24)
[2019-04-03] MEDS: METRONIDAZOLE 500MG TABLET PO SCH (21:37)
[2019-04-03] MEDS ORDERED: LORAZEPAM 0.5MG TABLET PO PRN (22:30)
[2019-04-04] VITALS (11 sets, daily range): BP systolic 95–135; BP diastolic 60–86
[2019-04-04] MEDS: DILTIAZEM HCL 60MG TABLET PO SCH ×3 (05:41→21:15)
[2019-04-04] MEDS: VANCOMYCIN HCL 1000 MG/20 ML ORAL PO SCH ×5 (05:42→23:10)
[2019-04-04] MEDS: METRONIDAZOLE 500MG TABLET PO SCH ×3 (05:42→21:14)
[2019-04-04 07:00] LABS: CHLORIDE 105 mEq/L (98-107)
[2019-04-04 07:06] LABS: HEMATOCRIT. 37.1 % (36.0-48.0); MEAN CORPUSCULAR VOLUME 98.7 fL (81.0-99.0); MEAN PLATELET VOLUME 8.5 fl (7.4-10.4); PLATELET 154 x1000/uL (130-400); RED BLOOD CELL COUNT 3.76 mill/uL (4.2-5.4); RED CELL DISTRIBUTION WIDTH 16.6 % (11.6-14.6)
[2019-04-04] MEDS: BLOOD SUGAR DIAGNOSTIC STRIP TEST SCH ×4 (07:55→21:13)
[2019-04-04] MEDS: INSULIN LISPRO 100 UNITS/ML SUBCUT SCH ×4 (08:00→21:00)
[2019-04-04] MEDS: POTASSIUM CHLORIDE 20MEQ TABLET SR PO SCH ×2 (08:54→18:14)
[2019-04-04] MEDS: ASPIRIN 81MG EC TABLET PO SCH (08:54)
[2019-04-04] MEDS: FAMOTIDINE 40MG TABLET PO SCH (08:54)
[2019-04-04] MEDS: ENOXAPARIN 80MG/0.8ML SYR SUBCUT SCH ×2 (08:55→21:15)
[2019-04-04] MEDS ORDERED: AZITHROMYCIN 500 MG TABLET PO SCH (09:00)
[2019-04-04] MEDS: CEFTRIAXONE 1 G PREMIX 50 ML IV SCH (10:26)
[2019-04-04] MEDS ORDERED: MAGNESIUM 2 G PREMIX 50 ML IV SCH (11:00)
[2019-04-04 11:01] LABS: PLATELET ESTIMATE NORMAL
[2019-04-04] MEDS: DIGOXIN 500MCG/2ML AMP IV SCH (18:14)
[2019-04-04] MEDS: RISPERIDONE 1MG TABLET PO SCH (21:14)
[2019-04-05] VITALS: BP 111/56
[2019-04-05 04:00] VITALS: BP 116/75
[2019-04-05] MEDS: METRONIDAZOLE 500MG TABLET PO SCH ×3 (06:07→22:51)
[2019-04-05] MEDS: VANCOMYCIN HCL 1000 MG/20 ML ORAL PO SCH ×3 (06:08→19:01)
[2019-04-05] MEDS: DILTIAZEM HCL 60MG TABLET PO SCH ×3 (06:08→22:01)
[2019-04-05 06:30] LABS: HEMATOCRIT. 33.1 % (36.0-48.0); HEMOGLOBIN. 10.8 g/dL (12.0-16.0); MEAN CORPUSCULAR HEMOGLOBIN 31.9 pg (28.0-32.0); MEAN CORPUSCULAR VOLUME 98.1 fL (81.0-99.0); MEAN PLATELET VOLUME 8.5 fl (7.4-10.4); PLATELET 169 x1000/uL (130-400); RED BLOOD CELL COUNT 3.38 mill/uL (4.2-5.4); RED CELL DISTRIBUTION WIDTH 16.4 % (11.6-14.6)
[2019-04-05 06:59] LABS: CHLORIDE 107 mEq/L (98-107)
[2019-04-05] MEDS: BLOOD SUGAR DIAGNOSTIC STRIP TEST SCH ×4 (07:30→21:00)
[2019-04-05 08:00] VITALS: BP 108/65
[2019-04-05] MEDS: INSULIN LISPRO 100 UNITS/ML SUBCUT SCH ×4 (08:00→21:00)
[2019-04-05] MEDS: ENOXAPARIN 80MG/0.8ML SYR SUBCUT SCH ×2 (09:02→22:02)
[2019-04-05] MEDS: ASPIRIN 81MG EC TABLET PO SCH (09:02)
[2019-04-05] MEDS: POTASSIUM CHLORIDE 20MEQ TABLET SR PO SCH ×2 (09:02→19:00)
[2019-04-05] MEDS: FAMOTIDINE 40MG TABLET PO SCH (09:02)
[2019-04-05 10:00] VITALS: BP 112/49
[2019-04-05 10:23] LABS: PLATELET ESTIMATE NORMAL
[2019-04-05 11:30] VITALS: BP 115/59
[2019-04-05] MEDS: DIGOXIN 500MCG/2ML AMP IV SCH (19:00)
[2019-04-05 20:00] VITALS: BP 119/59
[2019-04-05] MEDS: RISPERIDONE 1MG TABLET PO SCH (22:01)
[2019-04-06] VITALS: BP 125/51
[2019-04-06] MEDS: VANCOMYCIN HCL 1000 MG/20 ML ORAL PO SCH ×3 (00:36→12:59)
[2019-04-06 04:00] VITALS: BP 115/67
[2019-04-06] MEDS: BLOOD SUGAR DIAGNOSTIC STRIP TEST SCH ×4 (06:12→20:49)
[2019-04-06] MEDS: DILTIAZEM HCL 60MG TABLET PO SCH ×3 (06:12→21:05)
[2019-04-06] MEDS: INSULIN LISPRO 100 UNITS/ML SUBCUT SCH ×4 (06:40→21:00)
[2019-04-06 06:59] LABS: BASOPHILS % 0.5 % (0.0-2.0); EOSINOPHILS % 2.1 % (0.0-5.0); HEMATOCRIT. 33.7 % (36.0-48.0); MEAN CORPUSCULAR VOLUME 97.8 fL (81.0-99.0); MEAN PLATELET VOLUME 8.6 fl (7.4-10.4); MONOCYTES % 10.5 % (2.0-8.0); NEUTROPHILS % 76.9 % (40.0-76.0); PLATELET 187 x1000/uL (130-400); RED BLOOD CELL COUNT 3.45 mill/uL (4.2-5.4); RED CELL DISTRIBUTION WIDTH 16.3 % (11.6-14.6)
[2019-04-06] MEDS ORDERED: FAMOTIDINE 40MG TABLET PO SCH (07:00)
[2019-04-06 07:08] LABS: CHLORIDE 109 mEq/L (98-107)
[2019-04-06 07:36] LABS: DIGOXIN 1.7 ng/mL (0.9-2.0)
[2019-04-06 08:00] VITALS: BP 105/56
[2019-04-06 12:00] VITALS: BP 114/49
[2019-04-06] MEDS: POTASSIUM CHLORIDE 20MEQ TABLET SR PO SCH (12:59)
[2019-04-06] MEDS: ENOXAPARIN 80MG/0.8ML SYR SUBCUT SCH ×2 (12:59→20:50)
[2019-04-06] MEDS: ASPIRIN 81MG EC TABLET PO SCH (12:59)
[2019-04-06 16:00] VITALS: BP 102/51
[2019-04-06 20:00] VITALS: BP 113/80
[2019-04-06] MEDS: RISPERIDONE 1MG TABLET PO SCH (20:51)
[2019-04-07] VITALS: BP 108/58
[2019-04-07] MEDS: VANCOMYCIN HCL 1000 MG/20 ML ORAL PO SCH ×4 (00:18→17:53)
[2019-04-07] MEDS: METOCLOPRAMIDE HCL 10MG/2ML VIAL IV SCH ×4 (00:18→17:52)
[2019-04-07 04:00] VITALS: BP 121/58
[2019-04-07] MEDS: DILTIAZEM HCL 60MG TABLET PO SCH ×3 (05:55→21:31)
[2019-04-07] MEDS: FAMOTIDINE 20MG TABLET PO SCH (05:56)
[2019-04-07] MEDS: BLOOD SUGAR DIAGNOSTIC STRIP TEST SCH ×4 (05:56→20:30)
[2019-04-07] MEDS: INSULIN LISPRO 100 UNITS/ML SUBCUT SCH ×4 (06:12→20:29)
[2019-04-07 08:00] VITALS: BP 106/68
[2019-04-07 08:21] LABS: BASOPHILS % 0.7 % (0.0-2.0); HEMOGLOBIN. 11.1 g/dL (12.0-16.0); LYMPHOCYTES % 8.4 % (20.0-50.0); MEAN CORPUSCULAR HEMOGLOBIN 32.1 pg (28.0-32.0); MEAN CORPUSCULAR VOLUME 97.9 fL (81.0-99.0); MEAN PLATELET VOLUME 8.3 fl (7.4-10.4); MONOCYTES % 7.6 % (2.0-8.0); NEUTROPHILS % 81.3 % (40.0-76.0); PLATELET 217 x1000/uL (130-400); RED BLOOD CELL COUNT 3.47 mill/uL (4.2-5.4); RED CELL DISTRIBUTION WIDTH 16.4 % (11.6-14.6)
[2019-04-07 08:57] LABS: CHLORIDE 107 mEq/L (98-107)
[2019-04-07] MEDS: ASPIRIN 81MG EC TABLET PO SCH (09:28)
[2019-04-07] MEDS: ENOXAPARIN 80MG/0.8ML SYR SUBCUT SCH ×2 (09:29→20:30)
[2019-04-07] MEDS: POTASSIUM CHLORIDE 20MEQ TABLET SR PO SCH ×2 (10:36→17:52)
[2019-04-07 12:00] VITALS: BP 130/59
[2019-04-07] MEDS: MAGNESIUM GLUCONATE 500MG TABLET PO SCH (13:34)
[2019-04-07 16:00] VITALS: BP 140/56
[2019-04-07 20:00] VITALS: BP 124/63
[2019-04-07] MEDS: RISPERIDONE 1MG TABLET PO SCH (20:30)
[2019-04-08] VITALS: BP 121/60
[2019-04-08] MEDS: METOCLOPRAMIDE HCL 10MG/2ML VIAL IV SCH ×4 (00:12→17:17)
[2019-04-08] MEDS: VANCOMYCIN HCL 1000 MG/20 ML ORAL PO SCH ×3 (00:12→12:13)
[2019-04-08 04:00] VITALS: BP 113/52
[2019-04-08] MEDS: DILTIAZEM HCL 60MG TABLET PO SCH ×2 (06:33→13:32)
[2019-04-08] MEDS: FAMOTIDINE 20MG TABLET PO SCH (06:34)
[2019-04-08] MEDS: BLOOD SUGAR DIAGNOSTIC STRIP TEST SCH ×3 (06:36→16:43)
[2019-04-08] MEDS: INSULIN LISPRO 100 UNITS/ML SUBCUT SCH ×3 (07:15→16:43)
[2019-04-08 07:28] LABS: BASOPHILS % 1.1 % (0.0-2.0); EOSINOPHILS % 3.2 % (0.0-5.0); HEMATOCRIT. 33.6 % (36.0-48.0); HEMOGLOBIN. 10.9 g/dL (12.0-16.0); MEAN CORPUSCULAR HEMOGLOBIN 31.5 pg (28.0-32.0); MEAN CORPUSCULAR VOLUME 96.9 fL (81.0-99.0); MEAN PLATELET VOLUME 8.2 fl (7.4-10.4); MONOCYTES % 7.1 % (2.0-8.0); NEUTROPHILS % 75.6 % (40.0-76.0); PLATELET 235 x1000/uL (130-400); RED BLOOD CELL COUNT 3.46 mill/uL (4.2-5.4); RED CELL DISTRIBUTION WIDTH 16.1 % (11.6-14.6)
[2019-04-08 07:37] LABS: CHLORIDE 109 mEq/L (98-107)
[2019-04-08 08:00] VITALS: BP 110/57
[2019-04-08] MEDS: MAGNESIUM GLUCONATE 500MG TABLET PO SCH (09:01)
[2019-04-08] MEDS: POTASSIUM CHLORIDE 20MEQ TABLET SR PO SCH ×2 (09:02→17:17)
[2019-04-08] MEDS: ASPIRIN 81MG EC TABLET PO SCH (09:02)
[2019-04-08] MEDS: ENOXAPARIN 80MG/0.8ML SYR SUBCUT SCH (09:02)
[2019-04-08 12:00] VITALS: BP 120/67
[2019-04-08 13:51] VITALS: BP 120/67
[2019-04-08 16:00] VITALS: BP 110/58
== END 2019-04-08 18:17 | DRG 871 ==
LOC: ER 01:11 → ENRESERV 09:28 → 7WST 09:30 → EDBEDREQ 09:33 → EDBEDREQTM 09:47 → MICUNO 03-31 17:35 → MICUSO 04-01 05:30 → 5EST 04-02 17:57 → 5WST 04-05 13:01
PROVIDERS: ADMIT Internal Medicine; ATTEND Internal Medicine
PROC: 02HV33Z Insertion of Infusion Device into Superior Vena Cava, Percutaneous Approach (ICD-10-PCS; principal; 2019-03-31)
PROC: B548ZZA Ultrasonography of Superior Vena Cava, Guidance (ICD-10-PCS; 2019-03-31)
PROC: B5181ZA Fluoroscopy of Superior Vena Cava using Low Osmolar Contrast, Guidance (ICD-10-PCS; 2019-03-31)
DX: A41.4 Sepsis due to anaerobes (principal); I50.23 Acute on chronic systolic (congestive) heart failure; J18.9 Pneumonia, unspecified organism; E43 Unspecified severe protein-calorie malnutrition; R65.21 Severe sepsis with septic shock; J96.00 Acute respiratory failure, unspecified whether with hypoxia or hypercapnia; G93.41 Metabolic encephalopathy; I26.99 Other pulmonary embolism without acute cor pulmonale; I42.0 Dilated cardiomyopathy; I48.20 Chronic atrial fibrillation, unspecified; R18.8 Other ascites; J44.0 Chronic obstructive pulmonary disease with (acute) lower respiratory infection; A04.72 Enterocolitis due to Clostridium difficile, not specified as recurrent; D68.9 Coagulation defect, unspecified; I31.3 Pericardial effusion (noninflammatory); K57.92 Diverticulitis of intestine, part unspecified, without perforation or abscess without bleeding; I48.92 Unspecified atrial flutter; E11.65 Type 2 diabetes mellitus with hyperglycemia; E78.5 Hyperlipidemia, unspecified; E83.42 Hypomagnesemia; E87.6 Hypokalemia; F17.200 Nicotine dependence, unspecified, uncomplicated; F20.9 Schizophrenia, unspecified; F31.9 Bipolar disorder, unspecified; I11.0 Hypertensive heart disease with heart failure; I27.20 Pulmonary hypertension, unspecified; K80.20 Calculus of gallbladder without cholecystitis without obstruction; K44.9 Diaphragmatic hernia without obstruction or gangrene; K57.90 Diverticulosis of intestine, part unspecified, without perforation or abscess without bleeding; K21.9 Gastro-esophageal reflux disease without esophagitis; I27.29 Other secondary pulmonary hypertension; I48.0 Paroxysmal atrial fibrillation; E11.42 Type 2 diabetes mellitus with diabetic polyneuropathy; D64.9 Anemia, unspecified; I08.1 Rheumatic disorders of both mitral and tricuspid valves; I50.82 Biventricular heart failure; F41.9 Anxiety disorder, unspecified; I25.10 Atherosclerotic heart disease of native coronary artery without angina pectoris; F17.210 Nicotine dependence, cigarettes, uncomplicated; Z95.5 Presence of coronary angioplasty implant and graft; Z86.711 Personal history of pulmonary embolism; Z79.84 Long term (current) use of oral hypoglycemic drugs; Z79.82 Long term (current) use of aspirin; Z79.02 Long term (current) use of antithrombotics/antiplatelets; Z68.27 Body mass index [BMI] 27.0-27.9, adult; Z79.899 Other long term (current) drug therapy
CPT/HCPCS: 36415; 36573; 36600; 71045; 71275; 74176; 76830; 76856; 76937; 78580; 80048; 80053; 80076; 80162; 81003; 82248; 82375; 82550; 82553; 82805; 82962; 83036; 83735; 83880; 84100; 84145; 84484; 85025; 85379; 87015; 87045; 87427; 87449; 87493; 87804; 89055; 92523; 92610; 93005; 93306; 93970; 96374; 96375; 97162; 97166; 99291; 99406; A6261; C1725; J0456; J0696; J1160; J1650; J1815; J1940; J1956; J2765; J3370; J3475; J3490; J7040; J7060; Q9967

== ENCOUNTER 2019-04-08 18:15 | Inpatient (IN) | payer MEDICARE, MEDICAID ==
[~2019-04-08] VITALS: Ht 162.6 cm; Wt 74.2 kg
[~2019-04-08 18:15] MED LIST changes: +ASPI-1158 MT; +CLOP75TA33 MT; +DILT30TA3 MT; +FERR325T6 MT; +OMEP20CA14 MT; +RISP2TAB22 MT
[2019-04-08] MEDS ORDERED: DEXTROSE 50% WATER 50ML SYRINGE IV PRN (19:15)
[2019-04-08] MEDS ORDERED: CLONIDINE 0.1MG TABLET PO PRN (19:15)
[2019-04-08] MEDS ORDERED: ACETAMINOPHEN 325MG TABLET PO PRN (19:15)
[2019-04-08] MEDS ORDERED: LORAZEPAM 0.5MG TABLET PO PRN (19:15)
[2019-04-08 19:20] VITALS: BP 114/55
[2019-04-08 20:00] VITALS: BP 117/62
[2019-04-08] MEDS: INSULIN LISPRO 100 UNITS/ML SUBCUT SCH (21:00)
[2019-04-08] MEDS: BLOOD SUGAR DIAGNOSTIC STRIP TEST SCH (21:00)
[2019-04-08] MEDS: RISPERIDONE 1MG TABLET PO SCH (22:12)
[2019-04-08] MEDS: FAMOTIDINE 20MG TABLET PO SCH (22:12)
[2019-04-08] MEDS: METOCLOPRAMIDE HCL 10MG TABLET PO SCH (22:12)
[2019-04-08] MEDS: DILTIAZEM HCL 60MG TABLET PO SCH (22:13)
[2019-04-08] MEDS: ENOXAPARIN 80MG/0.8ML SYR SUBCUT SCH (22:15)
[2019-04-09] MEDS: IPRATROPIUM/ALBUTEROL 0.5-3(2.5)MG/3ML NEB HHN SCH ×6 (01:56→23:51)
[2019-04-09] MEDS: DILTIAZEM HCL 60MG TABLET PO SCH ×3 (06:07→22:00)
[2019-04-09] MEDS: BLOOD SUGAR DIAGNOSTIC STRIP TEST SCH ×4 (06:30→21:22)
[2019-04-09] MEDS: INSULIN LISPRO 100 UNITS/ML SUBCUT SCH ×4 (07:38→21:00)
[2019-04-09 08:12] VITALS: BP 119/59
[2019-04-09 08:23] LABS: CHLORIDE 108 mEq/L (98-107)
[2019-04-09] MEDS: ASPIRIN 81MG TABLET PO SCH (08:44)
[2019-04-09] MEDS: METOCLOPRAMIDE HCL 10MG TABLET PO SCH ×4 (08:44→21:21)
[2019-04-09] MEDS: POTASSIUM CHLORIDE 20MEQ TABLET SR PO SCH ×2 (08:45→17:11)
[2019-04-09] MEDS: MAGNESIUM GLUCONATE 500MG TABLET PO SCH (08:45)
[2019-04-09] MEDS: ENOXAPARIN 80MG/0.8ML SYR SUBCUT SCH ×2 (08:45→21:22)
[2019-04-09] MEDS: DOCUSATE SODIUM 100MG CAPSULE PO SCH ×2 (09:00→16:14)
[2019-04-09 09:33] LABS: BASOPHILS % 1.4 % (0.0-2.0); EOSINOPHILS % 2.7 % (0.0-5.0); HEMOGLOBIN. 11.3 g/dL (12.0-16.0); LYMPHOCYTES % 12.6 % (20.0-50.0); MEAN CORPUSCULAR HEMOGLOBIN 31.7 pg (28.0-32.0); MEAN CORPUSCULAR VOLUME 98.4 fL (81.0-99.0); MEAN PLATELET VOLUME 8.7 fl (7.4-10.4); MONOCYTES % 8.8 % (2.0-8.0); NEUTROPHILS % 74.5 % (40.0-76.0); PLATELET 229 x1000/uL (130-400); RED BLOOD CELL COUNT 3.56 mill/uL (4.2-5.4); RED CELL DISTRIBUTION WIDTH 16.5 % (11.6-14.6)
[2019-04-09] MEDS: VANCOMYCIN HCL 1000 MG/20 ML ORAL PO SCH (17:13)
[2019-04-09 20:00] VITALS: BP 119/75
[2019-04-09] MEDS: RISPERIDONE 1MG TABLET PO SCH (21:21)
[2019-04-09] MEDS: FAMOTIDINE 20MG TABLET PO SCH (21:21)
[2019-04-10] MEDS: VANCOMYCIN HCL 1000 MG/20 ML ORAL PO SCH ×4 (00:47→17:27)
[2019-04-10] MEDS: IPRATROPIUM/ALBUTEROL 0.5-3(2.5)MG/3ML NEB HHN SCH ×5 (04:29→21:16)
[2019-04-10] MEDS: DILTIAZEM HCL 60MG TABLET PO SCH ×3 (05:57→22:25)
[2019-04-10] MEDS: BLOOD SUGAR DIAGNOSTIC STRIP TEST SCH ×4 (05:57→21:00)
[2019-04-10] MEDS: INSULIN LISPRO 100 UNITS/ML SUBCUT SCH ×4 (07:00→21:00)
[2019-04-10 07:35] LABS: BASOPHILS % 1.4 % (0.0-2.0); EOSINOPHILS % 2.9 % (0.0-5.0); HEMATOCRIT. 32.4 % (36.0-48.0); HEMOGLOBIN. 10.6 g/dL (12.0-16.0); LYMPHOCYTES % 15.1 % (20.0-50.0); MEAN CORPUSCULAR HEMOGLOBIN 31.9 pg (28.0-32.0); MEAN CORPUSCULAR VOLUME 97.6 fL (81.0-99.0); MEAN PLATELET VOLUME 8.1 fl (7.4-10.4); MONOCYTES % 4.9 % (2.0-8.0); NEUTROPHILS % 75.7 % (40.0-76.0); PLATELET 239 x1000/uL (130-400); RED BLOOD CELL COUNT 3.31 mill/uL (4.2-5.4); RED CELL DISTRIBUTION WIDTH 16.3 % (11.6-14.6)
[2019-04-10 07:47] LABS: CHLORIDE 109 mEq/L (98-107)
[2019-04-10 08:31] VITALS: BP 109/64
[2019-04-10] MEDS: MAGNESIUM GLUCONATE 500MG TABLET PO SCH (08:49)
[2019-04-10] MEDS: POTASSIUM CHLORIDE 20MEQ TABLET SR PO SCH ×2 (08:49→17:23)
[2019-04-10] MEDS: ASPIRIN 81MG TABLET PO SCH (08:49)
[2019-04-10] MEDS: ENOXAPARIN 80MG/0.8ML SYR SUBCUT SCH ×2 (08:49→22:24)
[2019-04-10] MEDS: METOCLOPRAMIDE HCL 10MG TABLET PO SCH ×4 (08:49→21:23)
[2019-04-10] MEDS: DOCUSATE SODIUM 100MG CAPSULE PO SCH ×2 (09:00→17:00)
[2019-04-10 21:10] VITALS: BP 109/77
[2019-04-10] MEDS: RISPERIDONE 1MG TABLET PO SCH (21:23)
[2019-04-10] MEDS: FAMOTIDINE 20MG TABLET PO SCH (21:23)
[2019-04-10] MEDS: NYSTATIN POWDER 15GM TOP SCH (21:54)
[2019-04-11] MEDS: VANCOMYCIN HCL 1000 MG/20 ML ORAL PO SCH ×4 (00:32→17:12)
[2019-04-11] MEDS: IPRATROPIUM/ALBUTEROL 0.5-3(2.5)MG/3ML NEB HHN SCH ×5 (00:40→21:22)
[2019-04-11] MEDS: DILTIAZEM HCL 60MG TABLET PO SCH ×3 (06:41→21:45)
[2019-04-11] MEDS: BLOOD SUGAR DIAGNOSTIC STRIP TEST SCH ×4 (06:41→21:45)
[2019-04-11] MEDS: INSULIN LISPRO 100 UNITS/ML SUBCUT SCH ×4 (06:43→21:00)
[2019-04-11 07:09] LABS: CHLORIDE 107 mEq/L (98-107)
[2019-04-11 07:13] LABS: BASOPHILS % 1.4 % (0.0-2.0); EOSINOPHILS % 3.1 % (0.0-5.0); HEMOGLOBIN. 10.5 g/dL (12.0-16.0); LYMPHOCYTES % 12.4 % (20.0-50.0); MEAN CORPUSCULAR HEMOGLOBIN 31.2 pg (28.0-32.0); MEAN CORPUSCULAR VOLUME 97.7 fL (81.0-99.0); MEAN PLATELET VOLUME 8.4 fl (7.4-10.4); MONOCYTES % 7.5 % (2.0-8.0); NEUTROPHILS % 75.6 % (40.0-76.0); PLATELET 240 x1000/uL (130-400); RED BLOOD CELL COUNT 3.37 mill/uL (4.2-5.4); RED CELL DISTRIBUTION WIDTH 16.4 % (11.6-14.6)
[2019-04-11 07:16] LABS: PHOSPHORUS 3.4 mg/dL (2.5-4.9)
[2019-04-11 07:19] LABS: TOTAL IRON BINDING CAPACITY 172 ug/dL (250-450)
[2019-04-11 07:21] LABS: FOLIC ACID (FOLATE) SERUM 4.5 ng/mL (>5.38)
[2019-04-11 07:54] VITALS: BP 102/60
[2019-04-11] MEDS: DOCUSATE SODIUM 100MG CAPSULE PO SCH ×2 (09:00→16:34)
[2019-04-11] MEDS: ASPIRIN 81MG TABLET PO SCH (09:26)
[2019-04-11] MEDS: METOCLOPRAMIDE HCL 10MG TABLET PO SCH ×4 (09:26→21:44)
[2019-04-11] MEDS: POTASSIUM CHLORIDE 20MEQ TABLET SR PO SCH ×2 (09:26→16:49)
[2019-04-11] MEDS: MAGNESIUM GLUCONATE 500MG TABLET PO SCH (09:26)
[2019-04-11] MEDS: NYSTATIN POWDER 15GM TOP SCH ×2 (09:26→21:53)
[2019-04-11] MEDS: ENOXAPARIN 80MG/0.8ML SYR SUBCUT SCH ×2 (09:26→21:50)
[2019-04-11] MEDS: GUAIFENESIN-DM 200MG-20MG/10ML UDC PO PRN (12:21)
[2019-04-11] MEDS ORDERED: MAGNESIUM 2 G PREMIX 50 ML IV ONE (12:45)
[2019-04-11] MEDS ORDERED: FUROSEMIDE 40MG/4ML VIAL IVP NR (13:30)
[2019-04-11] MEDS: FOLIC ACID 1MG TABLET PO SCH (13:32)
[2019-04-11 20:00] VITALS: BP 130/72
[2019-04-11 21:27] LABS: CLARITY URINE CLEAR (CLEAR); COLOR URINE ORANGE (YELLOW); KETONES URINE NEGATIVE (NEGATIVE); LEUKOCYTE ESTERASE URINE 2+ (NEGATIVE); NITRITE URINE NEGATIVE (NEGATIVE); OCCULT BLOOD URINE 3+ (NEGATIVE); PROTEIN URINE 1+ (NEGATIVE); SPECIFIC GRAVITY URINE 1.006 (1.005-1.030); UROBILINOGEN URINE 0.2 E.U./dL (0.2-1.0)
[2019-04-11] MEDS: FAMOTIDINE 20MG TABLET PO SCH (21:44)
[2019-04-11] MEDS: RISPERIDONE 1MG TABLET PO SCH (21:45)
[2019-04-12] MEDS: IPRATROPIUM/ALBUTEROL 0.5-3(2.5)MG/3ML NEB HHN SCH ×6 (00:11→21:13)
[2019-04-12] MEDS: VANCOMYCIN HCL 1000 MG/20 ML ORAL PO SCH ×4 (00:24→17:53)
[2019-04-12] MEDS ORDERED: FUROSEMIDE 40MG/4ML VIAL IVP NR ×2 (02:00→16:00)
[2019-04-12] MEDS: GUAIFENESIN-DM 200MG-20MG/10ML UDC PO PRN (04:32)
[2019-04-12 05:36] LABS: BASOPHILS % 1.4 % (0.0-2.0); EOSINOPHILS % 3.1 % (0.0-5.0); HEMATOCRIT. 33.3 % (36.0-48.0); HEMOGLOBIN. 10.9 g/dL (12.0-16.0); LYMPHOCYTES % 15.4 % (20.0-50.0); MEAN CORPUSCULAR VOLUME 97.8 fL (81.0-99.0); MEAN PLATELET VOLUME 8.8 fl (7.4-10.4); MONOCYTES % 6.9 % (2.0-8.0); NEUTROPHILS % 73.2 % (40.0-76.0); PLATELET 240 x1000/uL (130-400); RED BLOOD CELL COUNT 3.41 mill/uL (4.2-5.4); RED CELL DISTRIBUTION WIDTH 16.7 % (11.6-14.6)
[2019-04-12] MEDS: DILTIAZEM HCL 60MG TABLET PO SCH ×3 (05:43→21:44)
[2019-04-12] MEDS: BLOOD SUGAR DIAGNOSTIC STRIP TEST SCH ×4 (05:43→21:45)
[2019-04-12] MEDS: INSULIN LISPRO 100 UNITS/ML SUBCUT SCH ×4 (05:43→21:00)
[2019-04-12 06:35] LABS: CHLORIDE 105 mEq/L (98-107)
[2019-04-12 06:48] LABS: T4 FREE 0.74 ng/dL (0.76-1.46)
[2019-04-12 08:13] VITALS: BP 151/55
[2019-04-12] MEDS: POTASSIUM CHLORIDE 20MEQ TABLET SR PO SCH ×2 (09:20→17:53)
[2019-04-12] MEDS: ASPIRIN 81MG TABLET PO SCH (09:20)
[2019-04-12] MEDS: METOCLOPRAMIDE HCL 10MG TABLET PO SCH ×4 (09:20→21:43)
[2019-04-12] MEDS: DOCUSATE SODIUM 100MG CAPSULE PO SCH ×2 (09:20→17:53)
[2019-04-12] MEDS: MAGNESIUM GLUCONATE 500MG TABLET PO SCH (09:20)
[2019-04-12] MEDS: FOLIC ACID 1MG TABLET PO SCH (09:21)
[2019-04-12] MEDS: ENOXAPARIN 80MG/0.8ML SYR SUBCUT SCH ×2 (09:21→21:45)
[2019-04-12] MEDS: NYSTATIN POWDER 15GM TOP SCH ×2 (09:22→21:45)
[2019-04-12 20:00] VITALS: BP 133/76
[2019-04-12] MEDS: FAMOTIDINE 20MG TABLET PO SCH (21:43)
[2019-04-12] MEDS: RISPERIDONE 1MG TABLET PO SCH (21:44)
[2019-04-13] MEDS: IPRATROPIUM/ALBUTEROL 0.5-3(2.5)MG/3ML NEB HHN SCH ×6 (00:39→21:30)
[2019-04-13] MEDS: DILTIAZEM HCL 60MG TABLET PO SCH ×3 (05:56→20:44)
[2019-04-13] MEDS: LEVOTHYROXINE SODIUM 25MCG TABLET PO SCH (05:56)
[2019-04-13] MEDS: VANCOMYCIN HCL 1000 MG/20 ML ORAL PO SCH ×4 (05:58→17:06)
[2019-04-13] MEDS: BLOOD SUGAR DIAGNOSTIC STRIP TEST SCH ×4 (05:58→20:43)
[2019-04-13 07:42] LABS: T4 FREE 0.7 ng/dL (0.76-1.46)
[2019-04-13 08:00] VITALS: BP 109/63
[2019-04-13] MEDS: INSULIN LISPRO 100 UNITS/ML SUBCUT SCH ×4 (09:00→21:00)
[2019-04-13] MEDS: METOCLOPRAMIDE HCL 10MG TABLET PO SCH ×4 (09:45→20:43)
[2019-04-13] MEDS: ASPIRIN 81MG TABLET PO SCH (09:45)
[2019-04-13] MEDS: DOCUSATE SODIUM 100MG CAPSULE PO SCH ×2 (09:45→17:05)
[2019-04-13] MEDS: ENOXAPARIN 80MG/0.8ML SYR SUBCUT SCH ×2 (09:45→20:44)
[2019-04-13] MEDS: POTASSIUM CHLORIDE 20MEQ TABLET SR PO SCH ×2 (09:45→17:05)
[2019-04-13] MEDS: MAGNESIUM GLUCONATE 500MG TABLET PO SCH (09:45)
[2019-04-13] MEDS: FOLIC ACID 1MG TABLET PO SCH (09:45)
[2019-04-13] MEDS: NYSTATIN POWDER 15GM TOP SCH ×2 (09:46→20:45)
[2019-04-13] MEDS ORDERED: FUROSEMIDE 40MG/4ML VIAL IVP NR (16:30)
[2019-04-13 20:00] VITALS: BP 115/59
[2019-04-13] MEDS: FAMOTIDINE 20MG TABLET PO SCH (20:43)
[2019-04-13] MEDS: RISPERIDONE 1MG TABLET PO SCH (20:43)
[2019-04-14] MEDS: VANCOMYCIN HCL 1000 MG/20 ML ORAL PO SCH ×4 (00:44→17:09)
[2019-04-14] MEDS: IPRATROPIUM/ALBUTEROL 0.5-3(2.5)MG/3ML NEB HHN SCH ×6 (01:07→19:45)
[2019-04-14] MEDS: LEVOTHYROXINE SODIUM 25MCG TABLET PO SCH (06:01)
[2019-04-14] MEDS: BLOOD SUGAR DIAGNOSTIC STRIP TEST SCH ×4 (06:01→21:48)
[2019-04-14] MEDS: DILTIAZEM HCL 60MG TABLET PO SCH ×2 (06:13→14:00)
[2019-04-14] MEDS: INSULIN LISPRO 100 UNITS/ML SUBCUT SCH ×4 (06:14→21:00)
[2019-04-14 07:00] LABS: BASOPHILS % 0.9 % (0.0-2.0); EOSINOPHILS % 2.3 % (0.0-5.0); HEMOGLOBIN. 9.7 g/dL (12.0-16.0); LYMPHOCYTES % 15.1 % (20.0-50.0); MEAN CORPUSCULAR HEMOGLOBIN 32.4 pg (28.0-32.0); MEAN CORPUSCULAR VOLUME 97.1 fL (81.0-99.0); MEAN PLATELET VOLUME 8.8 fl (7.4-10.4); MONOCYTES % 7.9 % (2.0-8.0); NEUTROPHILS % 73.8 % (40.0-76.0); PLATELET 212 x1000/uL (130-400); RED BLOOD CELL COUNT 2.99 mill/uL (4.2-5.4); RED CELL DISTRIBUTION WIDTH 16.9 % (11.6-14.6)
[2019-04-14 08:00] VITALS: BP 106/59
[2019-04-14] MEDS: MAGNESIUM GLUCONATE 500MG TABLET PO SCH (08:27)
[2019-04-14] MEDS: DOCUSATE SODIUM 100MG CAPSULE PO SCH ×2 (08:27→17:09)
[2019-04-14] MEDS: POTASSIUM CHLORIDE 20MEQ TABLET SR PO SCH (08:27)
[2019-04-14] MEDS: FOLIC ACID 1MG TABLET PO SCH (08:27)
[2019-04-14] MEDS: ASPIRIN 81MG TABLET PO SCH (08:28)
[2019-04-14] MEDS: ENOXAPARIN 80MG/0.8ML SYR SUBCUT SCH (08:28)
[2019-04-14] MEDS: METOCLOPRAMIDE HCL 10MG TABLET PO SCH ×4 (08:28→22:02)
[2019-04-14] MEDS: NYSTATIN POWDER 15GM TOP SCH ×2 (08:28→21:00)
[2019-04-14] MEDS: FUROSEMIDE 40MG/4ML VIAL IVP SCH (10:16)
[2019-04-14 20:00] VITALS: BP 97/54
[2019-04-14] MEDS ORDERED: APIXABAN 5 MG TABLET PO SCH (21:00)
[2019-04-14] MEDS: RISPERIDONE 1MG TABLET PO SCH (22:03)
[2019-04-14] MEDS: FAMOTIDINE 20MG TABLET PO SCH (22:03)
[2019-04-15] MEDS: VANCOMYCIN HCL 1000 MG/20 ML ORAL PO SCH ×4 (00:13→17:55)
[2019-04-15] MEDS: IPRATROPIUM/ALBUTEROL 0.5-3(2.5)MG/3ML NEB HHN SCH ×7 (00:46→23:48)
[2019-04-15] MEDS: BLOOD SUGAR DIAGNOSTIC STRIP TEST SCH ×4 (06:28→21:34)
[2019-04-15] MEDS: LEVOTHYROXINE SODIUM 25MCG TABLET PO SCH (06:28)
[2019-04-15] MEDS: INSULIN LISPRO 100 UNITS/ML SUBCUT SCH ×4 (06:53→21:00)
[2019-04-15 08:00] VITALS: BP 105/73
[2019-04-15 08:11] LABS: 25-HYDROXY VITAMIN D3 13 ng/mL (.)
[2019-04-15] MEDS: NYSTATIN POWDER 15GM TOP SCH ×2 (09:00→22:29)
[2019-04-15] MEDS: DILTIAZEM HCL 180MG CAPSULE CD 24HR PO SCH ×2 (09:00→09:29)
[2019-04-15] MEDS: METOCLOPRAMIDE HCL 10MG TABLET PO SCH ×4 (09:32→21:34)
[2019-04-15] MEDS: ASPIRIN 81MG TABLET PO SCH (09:32)
[2019-04-15] MEDS: FUROSEMIDE 40MG/4ML VIAL IVP SCH (09:32)
[2019-04-15] MEDS: DOCUSATE SODIUM 100MG CAPSULE PO SCH ×2 (09:32→17:55)
[2019-04-15] MEDS: FOLIC ACID 1MG TABLET PO SCH (09:32)
[2019-04-15] MEDS: MAGNESIUM GLUCONATE 500MG TABLET PO SCH (09:32)
[2019-04-15] MEDS: SPIRONOLACTONE 25MG TABLET PO SCH (14:35)
[2019-04-15 14:48] LABS: BG BASE EXCESS 4.4 mmol/L (-2.0-2.0); BG CARBOXYHEMOGLOBIN 0.6 % (0.5-1.5); BG DEOXYHEMOGLOBIN 11.4 % (0.0-5.0); BG FRACTION INSPIRED OXYGEN 21; BG OXYGEN SATURATION 88.5 % (92.0-98.5); BG PCO2 43.6 mmHg (35.0-45.0); BG PH 7.441 (7.350-7.450); BG PO2 56.5 mmHg (75.0-100.0); BG SAMPLE SITE LEFT RADIAL; BG TOTAL HEMOGLOBIN 11.6 g/dL (12.0-18.0); BG VENT MODE ROOM AIR
[2019-04-15] MEDS ORDERED: ERGOCALCIFEROL 50000UNITS CAPSULE PO SCH (16:00)
[2019-04-15 16:20] VITALS: BP 88/54
[2019-04-15] MEDS: APIXABAN 2.5 MG TABLET PO SCH (17:55)
[2019-04-15 20:00] VITALS: BP 98/55
[2019-04-15] MEDS: FAMOTIDINE 20MG TABLET PO SCH (21:34)
[2019-04-15] MEDS: RISPERIDONE 1MG TABLET PO SCH (21:34)
[2019-04-16] MEDS: VANCOMYCIN HCL 1000 MG/20 ML ORAL PO SCH ×3 (00:56→12:01)
[2019-04-16] MEDS: IPRATROPIUM/ALBUTEROL 0.5-3(2.5)MG/3ML NEB HHN SCH ×3 (03:30→11:34)
[2019-04-16 06:11] LABS: BASOPHILS % 1.5 % (0.0-2.0); EOSINOPHILS % 2.2 % (0.0-5.0); HEMATOCRIT. 27.1 % (36.0-48.0); HEMOGLOBIN. 9.5 g/dL (12.0-16.0); LYMPHOCYTES % 13.5 % (20.0-50.0); MEAN CORPUSCULAR HEMOGLOBIN 33.6 pg (28.0-32.0); MEAN CORPUSCULAR VOLUME 96.1 fL (81.0-99.0); MEAN PLATELET VOLUME 9.1 fl (7.4-10.4); MONOCYTES % 9.1 % (2.0-8.0); NEUTROPHILS % 73.7 % (40.0-76.0); PLATELET 196 x1000/uL (130-400); RED BLOOD CELL COUNT 2.82 mill/uL (4.2-5.4); RED CELL DISTRIBUTION WIDTH 16.9 % (11.6-14.6)
[2019-04-16] MEDS: BLOOD SUGAR DIAGNOSTIC STRIP TEST SCH ×2 (06:18→11:22)
[2019-04-16] MEDS: LEVOTHYROXINE SODIUM 25MCG TABLET PO SCH (06:18)
[2019-04-16 08:00] VITALS: BP 115/66
[2019-04-16] MEDS: FUROSEMIDE 40MG/4ML VIAL IVP SCH (08:53)
[2019-04-16] MEDS: DOCUSATE SODIUM 100MG CAPSULE PO SCH (08:54)
[2019-04-16] MEDS: DILTIAZEM HCL 180MG CAPSULE CD 24HR PO SCH (08:54)
[2019-04-16] MEDS: MAGNESIUM GLUCONATE 500MG TABLET PO SCH (08:54)
[2019-04-16] MEDS: FOLIC ACID 1MG TABLET PO SCH (08:54)
[2019-04-16] MEDS: APIXABAN 2.5 MG TABLET PO SCH (08:54)
[2019-04-16] MEDS: METOCLOPRAMIDE HCL 10MG TABLET PO SCH ×2 (08:54→12:01)
[2019-04-16] MEDS: INSULIN LISPRO 100 UNITS/ML SUBCUT SCH ×2 (08:54→11:22)
[2019-04-16] MEDS: NYSTATIN POWDER 15GM TOP SCH (08:56)
[2019-04-16] MEDS: SPIRONOLACTONE 25MG TABLET PO SCH (08:56)
[2019-04-16 10:55] VITALS: BP 115/66
[2019-04-16] MEDS ORDERED: FURO40TA5 MT ×2 (13:28→13:34)
[2019-04-16] MEDS ORDERED: FAMO20TA8 PO (13:28)
[2019-04-16] MEDS ORDERED: MAG500 PO (13:28)
[2019-04-16] MEDS ORDERED: APIX2.5T PO (13:28)
[2019-04-16] MEDS ORDERED: SPIR25TA PO (13:28)
[2019-04-16] MEDS ORDERED: FOLI-43 PO (13:28)
[2019-04-16] MEDS ORDERED: DILT180C66 PO (13:28)
[2019-04-16] MEDS ORDERED: DOCU-150 PO (13:28)
[2019-04-16] MEDS ORDERED: LEVO25TA7 PO (13:28)
== END 2019-04-16 16:23 | disposition home health service (06) | DRG 91 ==
PROVIDERS: ADMIT Physical Medicine & Rehabilitation Spinal Cord Injury Medicine; ATTEND Internal Medicine
DX: G92 Toxic encephalopathy (principal); A41.9 Sepsis, unspecified organism; R65.21 Severe sepsis with septic shock; I26.99 Other pulmonary embolism without acute cor pulmonale; J18.9 Pneumonia, unspecified organism; J96.00 Acute respiratory failure, unspecified whether with hypoxia or hypercapnia; I48.20 Chronic atrial fibrillation, unspecified; A04.72 Enterocolitis due to Clostridium difficile, not specified as recurrent; D68.9 Coagulation defect, unspecified; E46 Unspecified protein-calorie malnutrition; I42.9 Cardiomyopathy, unspecified; I50.22 Chronic systolic (congestive) heart failure; I31.3 Pericardial effusion (noninflammatory); J44.0 Chronic obstructive pulmonary disease with (acute) lower respiratory infection; K57.92 Diverticulitis of intestine, part unspecified, without perforation or abscess without bleeding; R18.8 Other ascites; F20.9 Schizophrenia, unspecified; I48.0 Paroxysmal atrial fibrillation; D64.9 Anemia, unspecified; E11.65 Type 2 diabetes mellitus with hyperglycemia; E27.9 Disorder of adrenal gland, unspecified; E83.42 Hypomagnesemia; E87.6 Hypokalemia; F17.210 Nicotine dependence, cigarettes, uncomplicated; F31.9 Bipolar disorder, unspecified; G62.9 Polyneuropathy, unspecified; I08.1 Rheumatic disorders of both mitral and tricuspid valves; I11.0 Hypertensive heart disease with heart failure; I25.10 Atherosclerotic heart disease of native coronary artery without angina pectoris; I27.29 Other secondary pulmonary hypertension; K44.9 Diaphragmatic hernia without obstruction or gangrene; K80.20 Calculus of gallbladder without cholecystitis without obstruction; Z95.5 Presence of coronary angioplasty implant and graft
CPT/HCPCS: 36415; 36600; 71045; 71046; 80048; 80053; 80076; 81003; 82140; 82306; 82375; 82533; 82550; 82607; 82728; 82746; 82805; 82962; 83540; 83550; 83735; 84100; 84134; 84439; 84443; 84481; 85025; 86376; 92523; 93005; 93970; 94618; 94640; 97110; 97112; 97116; 97161; 97166; 97530; 97535; C1893; J1650; J1815; J1940; J3370; J3475; J7620; J8597

== ENCOUNTER 2019-07-04 12:27 | Inpatient (IN) | payer MEDICARE, MEDICAID ==
[~2019-07-04] VITALS: Ht 157.5 cm; Wt 92.5 kg
[~2019-07-04 12:27] MED LIST changes: +ALBU2.5V13 HHN; +APIX2.5T PO; -ASPI-1158 MT; -CLOP75TA33 MT; -DILT30TA3 MT; +DOCU-150 PO; +FAMO20TA8 PO; -FERR325T6 MT; +FOLI-43 PO; +LEVO25TA7 PO; +LOPE-84 PO; +MAG500 PO; -METF-414 PO; -OMEP20CA14 MT
[2019-07-04] MEDS ORDERED: SODIUM CHLORIDE 0.9% 1000ML BAG (SEPSIS BOLUS) IV ONE (13:00)
[2019-07-04 13:27] LABS: HEMATOCRIT. 41.4 % (36.0-48.0); HEMOGLOBIN. 13.4 g/dL (12.0-16.0); MEAN CORPUSCULAR HEMOGLOBIN 31.2 pg (28.0-32.0); MEAN CORPUSCULAR VOLUME 96.2 fL (81.0-99.0); MEAN PLATELET VOLUME 7.8 fl (7.4-10.4); PLATELET 200 x1000/uL (130-400); RED CELL DISTRIBUTION WIDTH 16.8 % (11.6-14.6)
[2019-07-04 13:32] LABS: CHLORIDE 100 mEq/L (98-107)
[2019-07-04 13:33] LABS: INR 1.3; PARTIAL THROMBOPLASTIN TIME 30.5 sec (23.4-31.0); PROTHROMBIN TIME 14.5 sec (9.6-11.0)
[2019-07-04 13:58] LABS: PLATELET ESTIMATE NORMAL
[2019-07-04] MEDS ORDERED: FUROSEMIDE 40MG/4ML VIAL IVP ONE (15:15)
[2019-07-04 18:20] VITALS: BP 127/84
[2019-07-04] MEDS ORDERED: PNEUMOCOCCAL 23-VAL P-SAC VAC 0.5 ML IM ONE (19:00)
[2019-07-04] MEDS ORDERED: INFLUENZA VIRUS VACCINE(AFLURIA) 0.5ML SYR IM ONE (19:00)
[2019-07-04 20:00] VITALS: BP 122/77
[2019-07-04] MEDS: RISPERIDONE 1MG TABLET PO SCH (22:08)
[2019-07-05] VITALS: BP 113/60
[2019-07-05 04:00] VITALS: BP 149/71
[2019-07-05 07:28] LABS: BASOPHILS % 0.7 % (0.0-2.0); CHLORIDE 99 mEq/L (98-107); EOSINOPHILS % 0.6 % (0.0-5.0); HEMATOCRIT. 36.5 % (36.0-48.0); HEMOGLOBIN. 12.1 g/dL (12.0-16.0); LYMPHOCYTES % 8.9 % (20.0-50.0); MEAN CORPUSCULAR HEMOGLOBIN 31.7 pg (28.0-32.0); MEAN CORPUSCULAR VOLUME 95.8 fL (81.0-99.0); MEAN PLATELET VOLUME 7.6 fl (7.4-10.4); MONOCYTES % 10.1 % (2.0-8.0); NEUTROPHILS % 79.7 % (40.0-76.0); PLATELET 181 x1000/uL (130-400); RED BLOOD CELL COUNT 3.81 mill/uL (4.2-5.4); RED CELL DISTRIBUTION WIDTH 17.5 % (11.6-14.6)
[2019-07-05 10:00] VITALS: BP 102/51
[2019-07-05] MEDS: APIXABAN 2.5 MG TABLET PO SCH ×2 (10:23→19:26)
[2019-07-05] MEDS: FUROSEMIDE 40MG/4ML VIAL IVP SCH (10:23)
[2019-07-05] MEDS: LEVOTHYROXINE SODIUM 25MCG TABLET PO SCH (10:24)
[2019-07-05] MEDS: MAGNESIUM GLUCONATE 500MG TABLET PO SCH (10:24)
[2019-07-05] MEDS: DOCUSATE SODIUM 100MG CAPSULE PO SCH ×2 (10:24→19:27)
[2019-07-05] MEDS: FOLIC ACID 1MG TABLET PO SCH (10:24)
[2019-07-05 12:00] VITALS: BP 104/66
[2019-07-05] MEDS ORDERED: DIGOXIN 250MCG TABLET PO ONE (12:00)
[2019-07-05] MEDS: DILTIAZEM HCL 30MG TABLET PO SCH ×2 (14:00→21:57)
[2019-07-05 16:00] VITALS: BP 126/66
[2019-07-05] MEDS: DIGOXIN 125MCG TABLET PO SCH (19:27)
[2019-07-05 20:00] VITALS: BP 95/64
[2019-07-05] MEDS ORDERED: RISPERIDONE 1MG TABLET PO SCH (21:00)
[2019-07-05] MEDS: IPRATROPIUM/ALBUTEROL 0.5-3(2.5)MG/3ML NEB HHN SCH (21:06)
[2019-07-05] MEDS: RISPERIDONE 1MG TABLET PO SCH (22:04)
[2019-07-05] MEDS: FAMOTIDINE 20MG TABLET PO SCH (22:05)
[2019-07-06] VITALS: BP 106/62
[2019-07-06] MEDS: IPRATROPIUM/ALBUTEROL 0.5-3(2.5)MG/3ML NEB HHN SCH ×3 (00:39→21:25)
[2019-07-06 04:00] VITALS: BP 126/72
[2019-07-06] MEDS: DILTIAZEM HCL 30MG TABLET PO SCH ×4 (05:45→20:11)
[2019-07-06] MEDS: LEVOTHYROXINE SODIUM 25MCG TABLET PO SCH ×3 (07:40→12:20)
[2019-07-06 08:00] VITALS: BP 118/79
[2019-07-06] MEDS: FUROSEMIDE 40MG/4ML VIAL IVP SCH (08:41)
[2019-07-06] MEDS: FOLIC ACID 1MG TABLET PO SCH ×3 (08:42→12:20)
[2019-07-06] MEDS: DOCUSATE SODIUM 100MG CAPSULE PO SCH ×2 (08:42→17:00)
[2019-07-06] MEDS: MAGNESIUM GLUCONATE 500MG TABLET PO SCH ×3 (08:42→12:20)
[2019-07-06 12:00] VITALS: BP 116/73
[2019-07-06 16:00] VITALS: BP 102/74
[2019-07-06] MEDS: DIGOXIN 125MCG TABLET PO SCH (17:43)
[2019-07-06 20:00] VITALS: BP 120/69
[2019-07-06] MEDS: RISPERIDONE 1MG TABLET PO SCH (20:10)
[2019-07-06] MEDS: FAMOTIDINE 20MG TABLET PO SCH (20:11)
[2019-07-06] MEDS ORDERED: ALBUTEROL (0.5%) 2.5MG/0.5ML NEB HHN SCH (21:30)
[2019-07-07] VITALS: BP 110/71
[2019-07-07] MEDS: IPRATROPIUM/ALBUTEROL 0.5-3(2.5)MG/3ML NEB HHN SCH ×4 (01:16→21:42)
[2019-07-07 04:00] VITALS: BP 127/77
[2019-07-07] MEDS: LEVOTHYROXINE SODIUM 25MCG TABLET PO SCH (04:54)
[2019-07-07] MEDS: DILTIAZEM HCL 30MG TABLET PO SCH (04:54)
[2019-07-07 06:39] LABS: BASOPHILS % 0.9 % (0.0-2.0); EOSINOPHILS % 2.3 % (0.0-5.0); HEMATOCRIT. 35.8 % (36.0-48.0); HEMOGLOBIN. 11.5 g/dL (12.0-16.0); MEAN CORPUSCULAR HEMOGLOBIN 30.9 pg (28.0-32.0); MEAN CORPUSCULAR VOLUME 96.6 fL (81.0-99.0); MEAN PLATELET VOLUME 7.2 fl (7.4-10.4); MONOCYTES % 9.5 % (2.0-8.0); NEUTROPHILS % 78.3 % (40.0-76.0); PLATELET 154 x1000/uL (130-400); RED BLOOD CELL COUNT 3.71 mill/uL (4.2-5.4); RED CELL DISTRIBUTION WIDTH 17.3 % (11.6-14.6)
[2019-07-07 07:36] LABS: INR 1.3; PROTHROMBIN TIME 14.3 sec (9.6-11.0)
[2019-07-07 08:00] VITALS: BP 116/66
[2019-07-07] MEDS: FUROSEMIDE 40MG/4ML VIAL IVP SCH (09:04)
[2019-07-07] MEDS: DOCUSATE SODIUM 100MG CAPSULE PO SCH ×2 (09:05→16:58)
[2019-07-07] MEDS: FOLIC ACID 1MG TABLET PO SCH (09:05)
[2019-07-07] MEDS: MAGNESIUM GLUCONATE 500MG TABLET PO SCH (09:06)
[2019-07-07 12:00] VITALS: BP 110/77
[2019-07-07] MEDS: DILTIAZEM HCL 60MG TABLET PO SCH ×3 (14:00→21:29)
[2019-07-07 16:00] VITALS: BP 125/70
[2019-07-07] MEDS: DIGOXIN 125MCG TABLET PO SCH (17:56)
[2019-07-07 20:06] VITALS: BP 113/83
[2019-07-07] MEDS: FAMOTIDINE 20MG TABLET PO SCH (21:28)
[2019-07-07] MEDS: RISPERIDONE 1MG TABLET PO SCH (21:29)
[2019-07-08] VITALS (7 sets, daily range): BP systolic 110–122; BP diastolic 63–83
[2019-07-08] MEDS: IPRATROPIUM/ALBUTEROL 0.5-3(2.5)MG/3ML NEB HHN SCH ×2 (02:01→21:26)
[2019-07-08] MEDS: DILTIAZEM HCL 60MG TABLET PO SCH ×3 (06:51→22:17)
[2019-07-08] MEDS: LEVOTHYROXINE SODIUM 25MCG TABLET PO SCH (06:51)
[2019-07-08] MEDS ORDERED: LIDOCAINE HCL 1% 20ML VIAL (Pyxis) INJ ONE (08:18)
[2019-07-08] MEDS ORDERED: SODIUM BICARBONATE 4% (2.4MEQ) 5ML VIAL IV ONE (08:18)
[2019-07-08] MEDS: FUROSEMIDE 40MG/4ML VIAL IVP SCH (10:06)
[2019-07-08] MEDS: DOCUSATE SODIUM 100MG CAPSULE PO SCH ×2 (10:07→17:07)
[2019-07-08] MEDS: MAGNESIUM GLUCONATE 500MG TABLET PO SCH (10:07)
[2019-07-08] MEDS: FOLIC ACID 1MG TABLET PO SCH (10:07)
[2019-07-08] MEDS: DIGOXIN 125MCG TABLET PO SCH (17:07)
[2019-07-08] MEDS: FUROSEMIDE 40MG TABLET PO SCH (17:09)
[2019-07-08] MEDS ORDERED: DIPHENHYDRAMINE 25MG CAPSULE PO PRN (21:15)
[2019-07-08] MEDS: FAMOTIDINE 20MG TABLET PO SCH (22:17)
[2019-07-08] MEDS: RISPERIDONE 1MG TABLET PO SCH (22:17)
[2019-07-09] VITALS: BP 118/62
[2019-07-09 01:32] LABS: CHLORIDE 98 mEq/L (98-107)
[2019-07-09] MEDS: IPRATROPIUM/ALBUTEROL 0.5-3(2.5)MG/3ML NEB HHN SCH ×4 (01:49→21:37)
[2019-07-09] MEDS ORDERED: DIPHENHYDRAMINE 25MG CAPSULE PO SCH (02:15)
[2019-07-09 04:00] VITALS: BP 131/73
[2019-07-09] MEDS: LEVOTHYROXINE SODIUM 25MCG TABLET PO SCH (05:32)
[2019-07-09] MEDS: DILTIAZEM HCL 60MG TABLET PO SCH ×3 (05:32→21:46)
[2019-07-09 07:46] VITALS: BP 100/64
[2019-07-09] MEDS: DOCUSATE SODIUM 100MG CAPSULE PO SCH ×2 (09:00→17:33)
[2019-07-09] MEDS: FUROSEMIDE 40MG TABLET PO SCH ×2 (09:00→17:33)
[2019-07-09] MEDS: MAGNESIUM GLUCONATE 500MG TABLET PO SCH (09:00)
[2019-07-09] MEDS: FOLIC ACID 1MG TABLET PO SCH (09:00)
[2019-07-09 10:41] LABS: CHLORIDE 98 mEq/L (98-107)
[2019-07-09 11:47] VITALS: BP 118/71
[2019-07-09 15:42] VITALS: BP 113/73
[2019-07-09] MEDS: DIGOXIN 125MCG TABLET PO SCH (17:33)
[2019-07-09] MEDS ORDERED: FURO-151 MT ×2 (18:49→18:50)
[2019-07-09] MEDS: RISPERIDONE 1MG TABLET PO SCH (21:47)
[2019-07-09] MEDS: FAMOTIDINE 20MG TABLET PO SCH (21:48)
[2019-07-09 22:04] VITALS: BP 93/65
== END 2019-07-09 23:15 | DRG 291 ==
LOC: ER 12:27 → 7WST 15:08 → ENRESERV 15:35 → 6WST 07-06 12:37
PROVIDERS: ADMIT Family Medicine; ATTEND Family Medicine
PROC: 0W9G3ZZ Drainage of Peritoneal Cavity, Percutaneous Approach (ICD-10-PCS; principal; 2019-07-08)
DX: I13.0 Hypertensive heart and chronic kidney disease with heart failure and stage 1 through stage 4 chronic kidney disease, or unspecified chronic kidney disease (principal); I50.23 Acute on chronic systolic (congestive) heart failure; J96.00 Acute respiratory failure, unspecified whether with hypoxia or hypercapnia; E44.1 Mild protein-calorie malnutrition; R18.8 Other ascites; I42.9 Cardiomyopathy, unspecified; I48.91 Unspecified atrial fibrillation; J44.9 Chronic obstructive pulmonary disease, unspecified; K80.20 Calculus of gallbladder without cholecystitis without obstruction; N18.9 Chronic kidney disease, unspecified; K21.9 Gastro-esophageal reflux disease without esophagitis; K57.90 Diverticulosis of intestine, part unspecified, without perforation or abscess without bleeding; E03.9 Hypothyroidism, unspecified; E11.22 Type 2 diabetes mellitus with diabetic chronic kidney disease; E66.01 Morbid (severe) obesity due to excess calories; F20.9 Schizophrenia, unspecified; I25.10 Atherosclerotic heart disease of native coronary artery without angina pectoris; Z86.711 Personal history of pulmonary embolism; Z68.37 Body mass index [BMI] 37.0-37.9, adult; Z95.5 Presence of coronary angioplasty implant and graft; Z79.899 Other long term (current) drug therapy
CPT/HCPCS: 36415; 49083; 71045; 74018; 74176; 80048; 80053; 80162; 83605; 83880; 84145; 84484; 85025; 90686; 90732; 93005; 96374; 99285; J1940; J3490; J7030; Q0163

== ENCOUNTER 2019-08-02 08:11 | Inpatient (IN) | payer MEDICARE, MEDICAID ==
[~2019-08-02] VITALS: Ht 154.9 cm; Wt 68.9 kg
[~2019-08-02 08:11] MED LIST changes: +FURO-151 MT
[2019-08-02 09:10] LABS: BASOPHILS % 0.5 % (0.0-2.0); HEMATOCRIT. 32.2 % (36.0-48.0); HEMOGLOBIN. 11.1 g/dL (12.0-16.0); LYMPHOCYTES % 11.8 % (20.0-50.0); MEAN CORPUSCULAR HEMOGLOBIN 31.4 pg (28.0-32.0); MEAN CORPUSCULAR VOLUME 91.4 fL (81.0-99.0); MEAN PLATELET VOLUME 7.8 fl (7.4-10.4); MONOCYTES % 5.9 % (2.0-8.0); NEUTROPHILS % 81.8 % (40.0-76.0); PLATELET 143 x1000/uL (130-400); RED BLOOD CELL COUNT 3.52 mill/uL (4.2-5.4)
[2019-08-02 09:17] LABS: CHLORIDE 92 mEq/L (98-107)
[2019-08-02 09:21] LABS: D-DIMER 1.3 mg/L FEU (<0.50); INR 1.3; PROTHROMBIN TIME 14.3 sec (9.6-11.0)
[2019-08-02 09:25] LABS: CREATINE KINASE 376 IU/L (26-192)
[2019-08-02 09:27] LABS: BG BASE EXCESS 1.7 mmol/L (-2.0-2.0); BG CARBOXYHEMOGLOBIN 0.3 % (0.5-1.5); BG DEOXYHEMOGLOBIN 0.8 % (0.0-5.0); BG FRACTION INSPIRED OXYGEN 99.8; BG HCO3 ACT 25.8 mmol/L (22.0-26.0); BG METHEMOGLOBIN 0.3 % (0.0-1.5); BG OXYGEN SATURATION 99.2 % (92.0-98.5); BG OXYHEMOGLOBIN 98.6 % (94.0-97.0); BG PCO2 38.4 mmHg (35.0-45.0); BG PH 7.445 (7.350-7.450); BG PO2 306.2 mmHg (75.0-100.0); BG SAMPLE SITE RIGHT RADIAL; BG TOTAL HEMOGLOBIN 11.6 g/dL (12.0-18.0); BG VENT MODE MASK - NRB
[2019-08-02 15:45] VITALS: BP 120/58
[2019-08-02 15:49] VITALS: BP 120/58
[2019-08-02] MEDS ORDERED: FOLI-43 MT (16:28)
[2019-08-02] MEDS ORDERED: ACETAMINOPHEN 650MG SUPP PR PRN ×2 (16:30)
[2019-08-02] MEDS ORDERED: ACETAMINOPHEN 650MG/20.3ML UDC GT PRN (16:30)
[2019-08-02] MEDS ORDERED: ACETAMINOPHEN 325MG TABLET PO PRN (16:30)
[2019-08-02] MEDS ORDERED: ENOXAPARIN 60MG/0.6ML SYR SUBCUT SCH (17:00)
[2019-08-02] MEDS ORDERED: AZITHROMYCIN 500 MG TABLET PO NR (17:00)
[2019-08-02] MEDS: FUROSEMIDE 40MG/4ML VIAL IVP SCH (17:28)
[2019-08-02] MEDS ORDERED: CEFTRIAXONE 1 G PREMIX 50 ML IV SCH (18:00)
[2019-08-02 20:00] VITALS: BP 110/57
[2019-08-02] MEDS: SODIUM CHLORIDE 0.9% INJ 3ML FLUSH IVF SCH (21:28)
[2019-08-03] VITALS: BP 126/74
[2019-08-03] MEDS ORDERED: ALBUTEROL (0.083%) 2.5MG/3ML NEB HHN SCH
[2019-08-03] MEDS: ACETAMINOPHEN 325MG TABLET PO PRN ×3 (02:08→21:57)
[2019-08-03 04:00] VITALS: BP 116/71
[2019-08-03] MEDS: SODIUM CHLORIDE 0.9% INJ 3ML FLUSH IVF SCH ×2 (06:03→13:52)
[2019-08-03 06:53] LABS: BASOPHILS % 0.3 % (0.0-2.0); EOSINOPHILS % 0.1 % (0.0-5.0); HEMATOCRIT. 34.3 % (36.0-48.0); HEMOGLOBIN. 11.7 g/dL (12.0-16.0); LYMPHOCYTES % 9.3 % (20.0-50.0); MEAN CORPUSCULAR HEMOGLOBIN 31.6 pg (28.0-32.0); MEAN CORPUSCULAR VOLUME 92.3 fL (81.0-99.0); MEAN PLATELET VOLUME 8.8 fl (7.4-10.4); MONOCYTES % 6.2 % (2.0-8.0); NEUTROPHILS % 84.1 % (40.0-76.0); PLATELET 132 x1000/uL (130-400); RED BLOOD CELL COUNT 3.72 mill/uL (4.2-5.4); RED CELL DISTRIBUTION WIDTH 17.2 % (11.6-14.6)
[2019-08-03 07:58] LABS: CHLORIDE 94 mEq/L (98-107)
[2019-08-03 08:00] VITALS: BP 117/70
[2019-08-03 08:10] LABS: LDL CHOLESTEROL 91 mg/dL (5-100)
[2019-08-03 08:11] LABS: CREATINE KINASE 250 IU/L (26-192)
[2019-08-03 08:12] LABS: HDL CHOLESTEROL 55 mg/dL (40-59)
[2019-08-03 08:15] LABS: CREATINE KINASE MB FRACTION < 1.0 ng/mL (0.5-3.6)
[2019-08-03] MEDS ORDERED: FOLIC ACID 1MG TABLET PO SCH (09:00)
[2019-08-03] MEDS: FUROSEMIDE 40MG/4ML VIAL IVP SCH ×2 (09:00→18:03)
[2019-08-03] MEDS: APIXABAN 5 MG TABLET PO SCH ×2 (09:03→18:02)
[2019-08-03] MEDS: DOCUSATE SODIUM 100MG CAPSULE PO SCH ×2 (09:03→17:00)
[2019-08-03] MEDS: MAGNESIUM GLUCONATE 500MG TABLET PO SCH (09:03)
[2019-08-03] MEDS: FOLIC ACID 1MG TABLET PO SCH (09:03)
[2019-08-03] MEDS: LEVOTHYROXINE SODIUM 25MCG TABLET PO SCH (09:03)
[2019-08-03 12:00] VITALS: BP 107/66
[2019-08-03] MEDS ORDERED: ALBUTEROL 6.7GM HFA INHALER ORI PRN (14:45)
[2019-08-03] MEDS ORDERED: POTASSIUM CHLORIDE 20MEQ TABLET SR PO NR (14:45)
[2019-08-03 16:00] VITALS: BP 110/66
[2019-08-03] MEDS: CEFTRIAXONE 1,000 MG in DEXTROSE 5% WATER 50 ML IV SCH (18:02)
[2019-08-03] MEDS: AZITHROMYCIN 250 MG TABLET PO SCH (18:02)
[2019-08-03 20:00] VITALS: BP 101/62
[2019-08-03] MEDS: FAMOTIDINE 20MG TABLET PO SCH (21:57)
[2019-08-04] VITALS: BP 101/55
[2019-08-04 04:00] VITALS: BP_SYST 109; BP_SYST 199; BP_DIAS 64
[2019-08-04] MEDS: SODIUM CHLORIDE 0.9% INJ 3ML FLUSH IVF SCH ×3 (06:00→20:41)
[2019-08-04 08:00] VITALS: BP 115/54
[2019-08-04] MEDS: FOLIC ACID 1MG TABLET PO SCH (08:11)
[2019-08-04] MEDS: FUROSEMIDE 40MG/4ML VIAL IVP SCH ×2 (08:11→16:18)
[2019-08-04] MEDS: LEVOTHYROXINE SODIUM 25MCG TABLET PO SCH (08:11)
[2019-08-04] MEDS: DOCUSATE SODIUM 100MG CAPSULE PO SCH ×2 (08:11→16:01)
[2019-08-04] MEDS: APIXABAN 5 MG TABLET PO SCH ×2 (08:12→16:18)
[2019-08-04] MEDS: MAGNESIUM GLUCONATE 500MG TABLET PO SCH (08:26)
[2019-08-04 12:00] VITALS: BP 134/74
[2019-08-04] MEDS: DILTIAZEM HCL 30MG TABLET PO SCH ×2 (13:43→17:06)
[2019-08-04 16:00] VITALS: BP 108/61
[2019-08-04] MEDS: ACETAMINOPHEN 325MG TABLET PO PRN ×2 (16:20→21:32)
[2019-08-04] MEDS: CEFTRIAXONE 1,000 MG in DEXTROSE 5% WATER 50 ML IV SCH (17:06)
[2019-08-04] MEDS: AZITHROMYCIN 250 MG TABLET PO SCH (17:06)
[2019-08-04 20:00] VITALS: BP 129/62
[2019-08-04] MEDS: FAMOTIDINE 20MG TABLET PO SCH (20:27)
[2019-08-05] VITALS (20 sets, daily range): BP systolic 89–127; BP diastolic 48–81
[2019-08-05] MEDS: ACETAMINOPHEN 325MG TABLET PO PRN (01:40)
[2019-08-05] MEDS: DILTIAZEM HCL 30MG TABLET PO SCH ×2 (05:19)
[2019-08-05] MEDS: SODIUM CHLORIDE 0.9% INJ 3ML FLUSH IVF SCH ×3 (05:19→21:20)
[2019-08-05] MEDS: ALBUTEROL 6.7GM HFA INHALER ORI SCH ×3 (06:00→18:00)
[2019-08-05] MEDS: FUROSEMIDE 40MG/4ML VIAL IVP SCH (08:48)
[2019-08-05] MEDS: APIXABAN 5 MG TABLET PO SCH ×2 (09:01→17:10)
[2019-08-05] MEDS: FOLIC ACID 1MG TABLET PO SCH (09:01)
[2019-08-05] MEDS: MAGNESIUM GLUCONATE 500MG TABLET PO SCH (09:01)
[2019-08-05] MEDS: LEVOTHYROXINE SODIUM 25MCG TABLET PO SCH (09:01)
[2019-08-05] MEDS: DOCUSATE SODIUM 100MG CAPSULE PO SCH ×2 (09:01→17:10)
[2019-08-05] MEDS: FUROSEMIDE 20MG/2ML VIAL IVP SCH (09:45)
[2019-08-05] MEDS ORDERED: SODIUM CHLORIDE 0.9% 250 ML IV NR (10:59)
[2019-08-05] MEDS ORDERED: FUROSEMIDE 40MG/4ML VIAL IVP NR (14:15)
[2019-08-05] MEDS ORDERED: POTASSIUM CHLORIDE 20MEQ/PACKET PO NR (14:38)
[2019-08-05] MEDS ORDERED: ALBUMIN HUMAN 25GM/100ML (25%) IV NR (14:50)
[2019-08-05] MEDS: METHYLPREDNISOLONE SOD SUCC 40 MG/ML VIAL IV SCH ×2 (14:52→17:10)
[2019-08-05 14:59] LABS: BG BASE EXCESS 7.1 mmol/L (-2.0-2.0); BG CARBOXYHEMOGLOBIN 0.9 % (0.5-1.5); BG DEOXYHEMOGLOBIN 2.7 % (0.0-5.0); BG FRACTION INSPIRED OXYGEN 100; BG HCO3 ACT 32.9 mmol/L (22.0-26.0); BG METHEMOGLOBIN 0.2 % (0.0-1.5); BG OXYGEN SATURATION 97.3 % (92.0-98.5); BG OXYHEMOGLOBIN 96.2 % (94.0-97.0); BG PCO2 50.9 mmHg (35.0-45.0); BG PH 7.428 (7.350-7.450); BG PO2 98.8 mmHg (75.0-100.0); BG SAMPLE SITE RIGHT RADIAL; BG TOTAL HEMOGLOBIN 14.5 g/dL (12.0-18.0); BG VENT MODE MASK - NRB
[2019-08-05] MEDS: AZITHROMYCIN 250 MG TABLET PO SCH (17:10)
[2019-08-05] MEDS: DILTIAZEM HCL 5MG/ML 5ML VIAL IV PRN (17:12)
[2019-08-05] MEDS: CEFTRIAXONE 1,000 MG in DEXTROSE 5% WATER 50 ML IV SCH (18:33)
[2019-08-05] MEDS: FAMOTIDINE 20MG TABLET PO SCH (21:00)
[2019-08-06] VITALS (60 sets, daily range): BP systolic 97–162; BP diastolic 39–95
[2019-08-06 05:42] LABS: HEMATOCRIT. 37.1 % (36.0-48.0); HEMOGLOBIN. 12.4 g/dL (12.0-16.0); MEAN CORPUSCULAR HEMOGLOBIN 31.5 pg (28.0-32.0); MEAN CORPUSCULAR VOLUME 94.2 fL (81.0-99.0); RED BLOOD CELL COUNT 3.94 mill/uL (4.2-5.4); RED CELL DISTRIBUTION WIDTH 17.2 % (11.6-14.6)
[2019-08-06 05:47] LABS: CHLORIDE 103 mEq/L (98-107)
[2019-08-06] MEDS: SODIUM CHLORIDE 0.9% INJ 3ML FLUSH IVF SCH ×3 (06:11→21:18)
[2019-08-06] MEDS: LEVOTHYROXINE SODIUM 25MCG TABLET PO SCH (06:12)
[2019-08-06] MEDS: ALBUTEROL 6.7GM HFA INHALER ORI SCH ×2 (08:40→16:00)
[2019-08-06] MEDS: METHYLPREDNISOLONE SOD SUCC 40 MG/ML VIAL IV SCH ×2 (09:01→16:55)
[2019-08-06] MEDS: FUROSEMIDE 20MG/2ML VIAL IVP SCH (09:01)
[2019-08-06] MEDS: FOLIC ACID 1MG TABLET PO SCH (09:01)
[2019-08-06] MEDS: DOCUSATE SODIUM 100MG CAPSULE PO SCH ×2 (09:02→16:55)
[2019-08-06] MEDS: APIXABAN 5 MG TABLET PO SCH ×2 (09:02→16:55)
[2019-08-06] MEDS: MAGNESIUM GLUCONATE 500MG TABLET PO SCH (10:36)
[2019-08-06 12:14] LABS: PLATELET ESTIMATE NORMAL
[2019-08-06 12:15] LABS: MEAN PLATELET VOLUME 9.6 fl (7.4-10.4); PLATELET 166 x1000/uL (130-400)
[2019-08-06] MEDS: AZITHROMYCIN 250 MG TABLET PO SCH (18:00)
[2019-08-06] MEDS: CEFTRIAXONE 1,000 MG in DEXTROSE 5% WATER 50 ML IV SCH (18:00)
[2019-08-06] MEDS: FAMOTIDINE 20MG TABLET PO SCH (21:18)
[2019-08-06 22:35] LABS: COVID-19 PCR RNA DETECTED
[2019-08-06 22:36] LABS: COVID-19 PCR RNA DETECTED
[2019-08-06] MEDS: DILTIAZEM HCL 5MG/ML 5ML VIAL IV PRN (23:21)
[2019-08-07] VITALS (97 sets, daily range): BP systolic 88–148; BP diastolic 39–94
[2019-08-07] LABS: BG BASE EXCESS 4.5 mmol/L (-2.0-2.0); BG CARBOXYHEMOGLOBIN 0.3 % (0.5-1.5); BG DEOXYHEMOGLOBIN 13.4 % (0.0-5.0); BG FRACTION INSPIRED OXYGEN 100; BG HCO3 ACT 30.9 mmol/L (22.0-26.0); BG OXYGEN SATURATION 86.6 % (92.0-98.5); BG OXYHEMOGLOBIN 86.3 % (94.0-97.0); BG PCO2 54.1 mmHg (35.0-45.0); BG PH 7.375 (7.350-7.450); BG PO2 55.5 mmHg (75.0-100.0); BG SAMPLE SITE LEFT RADIAL; BG TOTAL HEMOGLOBIN 12.9 g/dL (12.0-18.0); BG VENT MODE MASK - NRB
[2019-08-07] MEDS ORDERED: DOXYCYCLINE 100 MG in DEXT 5% WATER 100 ML IV SCH (05:00)
[2019-08-07] MEDS: DILTIAZEM HCL 5MG/ML 5ML VIAL IV PRN ×2 (05:33→08:32)
[2019-08-07] MEDS: SODIUM CHLORIDE 0.9% INJ 3ML FLUSH IVF SCH ×3 (05:58→22:28)
[2019-08-07] MEDS: LEVOTHYROXINE SODIUM 25MCG TABLET PO SCH (05:58)
[2019-08-07] MEDS: METHYLPREDNISOLONE SOD SUCC 40 MG/ML VIAL IV SCH ×2 (08:31→17:30)
[2019-08-07] MEDS: DOCUSATE SODIUM 100MG CAPSULE PO SCH ×2 (08:32→17:31)
[2019-08-07] MEDS: APIXABAN 5 MG TABLET PO SCH ×2 (08:32→17:31)
[2019-08-07] MEDS: FOLIC ACID 1MG TABLET PO SCH (08:32)
[2019-08-07] MEDS: MAGNESIUM GLUCONATE 500MG TABLET PO SCH (08:32)
[2019-08-07 09:23] LABS: BG BASE EXCESS 3.2 mmol/L (-2.0-2.0); BG CARBOXYHEMOGLOBIN 0.1 % (0.5-1.5); BG DEOXYHEMOGLOBIN 16.9 % (0.0-5.0); BG FRACTION INSPIRED OXYGEN 100; BG HCO3 ACT 28.2 mmol/L (22.0-26.0); BG METHEMOGLOBIN 0.1 % (0.0-1.5); BG OXYGEN SATURATION 83.1 % (92.0-98.5); BG OXYHEMOGLOBIN 82.9 % (94.0-97.0); BG PCO2 44.6 mmHg (35.0-45.0); BG PH 7.419 (7.350-7.450); BG PO2 50.4 mmHg (75.0-100.0); BG SAMPLE SITE RIGHT RADIAL; BG TOTAL HEMOGLOBIN 13.1 g/dL (12.0-18.0); BG VENT MODE MASK - NRB
[2019-08-07] MEDS: PANTOPRAZOLE SODIUM 40 MG/VIAL IV SCH (14:17)
[2019-08-07 14:19] LABS: BG BASE EXCESS 4.8 mmol/L (-2.0-2.0); BG CARBOXYHEMOGLOBIN 0.1 % (0.5-1.5); BG DEOXYHEMOGLOBIN 0.7 % (0.0-5.0); BG FRACTION INSPIRED OXYGEN 100; BG HCO3 ACT 30.8 mmol/L (22.0-26.0); BG METHEMOGLOBIN 0.2 % (0.0-1.5); BG OXYGEN SATURATION 99.3 % (92.0-98.5); BG PH 7.391 (7.350-7.450); BG PO2 289.9 mmHg (75.0-100.0); BG SAMPLE SITE LEFT RADIAL; BG TIDAL VOLUME(mL) 450 mL; BG TOTAL HEMOGLOBIN 12.6 g/dL (12.0-18.0); BG VENT MODE VENT - A/C; BG VENT RATE 18 set
[2019-08-07] MEDS: DILTIAZEM HCL 30MG TABLET PO SCH ×2 (14:19→22:00)
[2019-08-07] MEDS: PROPOFOL 10MG/ML 100ML 100 ML IV PRN ×2 (14:19→17:36)
[2019-08-07] MEDS: CEFTRIAXONE 1,000 MG in DEXTROSE 5% WATER 50 ML IV SCH (17:30)
[2019-08-07] MEDS ORDERED: DOXYCYCLINE HYCLATE 100MG CAPSULE PO SCH (18:00)
[2019-08-07] MEDS ORDERED: DEXT 5%/0.9% NACL 1,000 ML IV SCH (20:00)
[2019-08-07] MEDS: FAMOTIDINE 20MG TABLET PO SCH (20:34)
[2019-08-07] MEDS: DOXYCYCLINE HYCLATE 100MG CAPSULE PO SCH (20:34)
[2019-08-08] VITALS (96 sets, daily range): BP systolic 109–158; BP diastolic 50–125
[2019-08-08] MEDS: PROPOFOL 10MG/ML 100ML 100 ML IV PRN ×2 (01:00→08:53)
[2019-08-08 04:54] LABS: HEMATOCRIT. 34.6 % (36.0-48.0); HEMOGLOBIN. 11.5 g/dL (12.0-16.0); MEAN CORPUSCULAR HEMOGLOBIN 30.9 pg (28.0-32.0); MEAN CORPUSCULAR VOLUME 93.2 fL (81.0-99.0); PLATELET 185 x1000/uL (130-400); RED BLOOD CELL COUNT 3.71 mill/uL (4.2-5.4)
[2019-08-08 05:08] LABS: CHLORIDE 105 mEq/L (98-107)
[2019-08-08 05:18] LABS: PHOSPHORUS 1.6 mg/dL (2.5-4.9)
[2019-08-08 05:20] LABS: CREATINE KINASE 49 IU/L (26-192)
[2019-08-08] MEDS: SODIUM CHLORIDE 0.9% INJ 3ML FLUSH IVF SCH ×3 (06:31→21:33)
[2019-08-08] MEDS: LEVOTHYROXINE SODIUM 25MCG TABLET PO SCH (06:31)
[2019-08-08] MEDS: DILTIAZEM HCL 30MG TABLET PO SCH ×3 (06:31→21:32)
[2019-08-08] MEDS: PANTOPRAZOLE SODIUM 40 MG/VIAL IV SCH (08:47)
[2019-08-08] MEDS: METHYLPREDNISOLONE SOD SUCC 40 MG/ML VIAL IV SCH ×2 (08:47→18:10)
[2019-08-08] MEDS: DOXYCYCLINE HYCLATE 100MG CAPSULE PO SCH ×2 (08:47→21:23)
[2019-08-08] MEDS: DOCUSATE SODIUM 100MG CAPSULE PO SCH ×2 (08:47→18:10)
[2019-08-08] MEDS: MAGNESIUM GLUCONATE 500MG TABLET PO SCH (08:48)
[2019-08-08] MEDS: FOLIC ACID 1MG TABLET PO SCH (08:48)
[2019-08-08] MEDS: APIXABAN 5 MG TABLET PO SCH ×2 (08:50→18:10)
[2019-08-08 09:45] LABS: BG BASE EXCESS 4.9 mmol/L (-2.0-2.0); BG CARBOXYHEMOGLOBIN 0.1 % (0.5-1.5); BG DEOXYHEMOGLOBIN 2.7 % (0.0-5.0); BG FRACTION INSPIRED OXYGEN 70; BG HCO3 ACT 29.4 mmol/L (22.0-26.0); BG METHEMOGLOBIN 0.2 % (0.0-1.5); BG OXYGEN SATURATION 97.3 % (92.0-98.5); BG PCO2 43.1 mmHg (35.0-45.0); BG PH 7.451 (7.350-7.450); BG SAMPLE SITE RIGHT RADIAL; BG TIDAL VOLUME(mL) 450 mL; BG TOTAL HEMOGLOBIN 11.5 g/dL (12.0-18.0); BG VENT MODE VENT - A/C; BG VENT RATE 18 set
[2019-08-08 11:35] LABS: ATYPICAL LYMPHOCYTES 2; PLATELET ESTIMATE NORMAL
[2019-08-08] MEDS: ALBUTEROL 6.7GM HFA INHALER ORI SCH ×3 (12:58→21:34)
[2019-08-08] MEDS ORDERED: POTASSIUM PHOS,M-BASIC-D-BASIC 20 MMOL in DEXT 5% WATER 243.3333 ML IV SCH (14:00)
[2019-08-08 17:13] LABS: CLARITY URINE CLEAR (CLEAR); COLOR URINE YELLOW (YELLOW); KETONES URINE NEGATIVE (NEGATIVE); LEUKOCYTE ESTERASE URINE NEGATIVE (NEGATIVE); NITRITE URINE NEGATIVE (NEGATIVE); OCCULT BLOOD URINE 2+ (NEGATIVE); PH URINE 5.5 (4.5-8.0); PROTEIN URINE 3+ (NEGATIVE); SPECIFIC GRAVITY URINE 1.022 (1.005-1.030); UROBILINOGEN URINE 0.2 E.U./dL (0.2-1.0)
[2019-08-08] MEDS: FAMOTIDINE 20MG TABLET PO SCH (21:23)
[2019-08-08] MEDS: MIDAZOLAM HCL 100 MG in DEXT 5% WATER 80 ML IV PRN (21:27)
[2019-08-08] MEDS: FENTANYL CITRATE/PF 1,000 MCG in SODIUM CHLORIDE 0.9% 80 ML IV PRN (21:31)
[2019-08-09] VITALS (87 sets, daily range): BP systolic 99–151; BP diastolic 53–88
[2019-08-09] MEDS: ALBUTEROL 6.7GM HFA INHALER ORI SCH ×4 (03:10→21:00)
[2019-08-09 04:11] LABS: MICROALBUMIN RANDOM URINE 1314.2 ug/mL (Not Estab.)
[2019-08-09 06:13] LABS: HEMATOCRIT. 34.3 % (36.0-48.0); HEMOGLOBIN. 11.3 g/dL (12.0-16.0); MEAN CORPUSCULAR HEMOGLOBIN 31.1 pg (28.0-32.0); MEAN PLATELET VOLUME 9.1 fl (7.4-10.4); PLATELET 191 x1000/uL (130-400); RED BLOOD CELL COUNT 3.65 mill/uL (4.2-5.4); RED CELL DISTRIBUTION WIDTH 16.5 % (11.6-14.6)
[2019-08-09 06:30] LABS: PHOSPHORUS 3.3 mg/dL (2.5-4.9)
[2019-08-09] MEDS: LEVOTHYROXINE SODIUM 25MCG TABLET PO SCH (06:41)
[2019-08-09] MEDS: SODIUM CHLORIDE 0.9% INJ 3ML FLUSH IVF SCH ×3 (06:42→22:43)
[2019-08-09] MEDS: DILTIAZEM HCL 30MG TABLET PO SCH ×3 (06:42→21:36)
[2019-08-09] MEDS: PANTOPRAZOLE SODIUM 40 MG/VIAL IV SCH (08:28)
[2019-08-09] MEDS: DOXYCYCLINE HYCLATE 100MG CAPSULE PO SCH ×2 (08:28→21:36)
[2019-08-09] MEDS: DOCUSATE SODIUM SUGAR FREE 100MG/10ML UDC NG SCH ×2 (08:28→17:14)
[2019-08-09] MEDS: APIXABAN 5 MG TABLET PO SCH ×2 (08:29→17:14)
[2019-08-09] MEDS: MAGNESIUM GLUCONATE 500MG TABLET PO SCH (08:29)
[2019-08-09] MEDS: METHYLPREDNISOLONE SOD SUCC 40 MG/ML VIAL IV SCH ×2 (08:30→17:15)
[2019-08-09] MEDS: FOLIC ACID 1MG TABLET PO SCH (08:30)
[2019-08-09 08:35] LABS: PLATELET ESTIMATE NORMAL
[2019-08-09 08:52] LABS: BG BASE EXCESS 4.4 mmol/L (-2.0-2.0); BG CARBOXYHEMOGLOBIN 0.2 % (0.5-1.5); BG DEOXYHEMOGLOBIN 1.3 % (0.0-5.0); BG FRACTION INSPIRED OXYGEN 60; BG HCO3 ACT 32.1 mmol/L (22.0-26.0); BG METHEMOGLOBIN 0.2 % (0.0-1.5); BG OXYGEN SATURATION 98.7 % (92.0-98.5); BG OXYHEMOGLOBIN 98.3 % (94.0-97.0); BG PCO2 64.3 mmHg (35.0-45.0); BG PH 7.316 (7.350-7.450); BG PO2 160.6 mmHg (75.0-100.0); BG SAMPLE SITE RIGHT RADIAL; BG TIDAL VOLUME(mL) 450 mL; BG TOTAL HEMOGLOBIN 11.5 g/dL (12.0-18.0); BG VENT MODE VENT - A/C; BG VENT RATE 14 set
[2019-08-09 13:06] LABS: A/G RATIO 0.6 (0.7-1.7); ALBUMIN 2.6 g/dL (2.9-4.4); ALPHA-1-GLOBULIN 0.2 g/dL (0.0-0.4); BETA GLOBULIN 1.1 g/dL (0.7-1.3); GAMMA GLOBULINS 2.2 g/dL (0.4-1.8); GLOBULIN TOTAL 4.5 g/dL (2.2-3.9); M-SPIKE Not Observed g/dL (Not Observed); TOTAL PROTEIN SERUM 7.1 g/dL (6.0-8.5)
[2019-08-09] MEDS: FAMOTIDINE 20MG TABLET PO SCH (21:36)
[2019-08-10] VITALS (93 sets, daily range): BP systolic 130–160; BP diastolic 67–97
[2019-08-10] MEDS: ALBUTEROL 6.7GM HFA INHALER ORI SCH ×6 (00:40→17:00)
[2019-08-10] MEDS: SODIUM CHLORIDE 0.9% INJ 3ML FLUSH IVF SCH ×3 (06:21→21:12)
[2019-08-10] MEDS: LEVOTHYROXINE SODIUM 25MCG TABLET PO SCH (06:23)
[2019-08-10] MEDS: DILTIAZEM HCL 30MG TABLET PO SCH ×3 (06:23→21:12)
[2019-08-10] MEDS ORDERED: FUROSEMIDE 20MG/2ML VIAL IVP NR (07:45)
[2019-08-10] MEDS: DOCUSATE SODIUM SUGAR FREE 100MG/10ML UDC NG SCH ×2 (08:15→17:42)
[2019-08-10] MEDS: APIXABAN 5 MG TABLET PO SCH ×2 (08:16→17:42)
[2019-08-10] MEDS: PANTOPRAZOLE SODIUM 40 MG/VIAL IV SCH (08:16)
[2019-08-10] MEDS: FOLIC ACID 1MG TABLET PO SCH (08:16)
[2019-08-10] MEDS: DOXYCYCLINE HYCLATE 100MG CAPSULE PO SCH ×2 (08:16→21:11)
[2019-08-10] MEDS: METHYLPREDNISOLONE SOD SUCC 40 MG/ML VIAL IV SCH ×2 (08:16→17:42)
[2019-08-10] MEDS: MAGNESIUM GLUCONATE 500MG TABLET PO SCH (08:16)
[2019-08-10 10:41] LABS: BG CARBOXYHEMOGLOBIN 0.2 % (0.5-1.5); BG DEOXYHEMOGLOBIN 1.9 % (0.0-5.0); BG FRACTION INSPIRED OXYGEN 40; BG HCO3 ACT 31.7 mmol/L (22.0-26.0); BG METHEMOGLOBIN 0.1 % (0.0-1.5); BG OXYGEN SATURATION 98.1 % (92.0-98.5); BG OXYHEMOGLOBIN 97.8 % (94.0-97.0); BG PCO2 45.4 mmHg (35.0-45.0); BG PH 7.462 (7.350-7.450); BG PO2 118.7 mmHg (75.0-100.0); BG SAMPLE SITE RIGHT RADIAL; BG TIDAL VOLUME(mL) 450 mL; BG TOTAL HEMOGLOBIN 11.9 g/dL (12.0-18.0); BG VENT MODE VENT- PRCV; BG VENT RATE 18 set
[2019-08-10 11:16] LABS: HEMATOCRIT. 35.7 % (36.0-48.0); HEMOGLOBIN. 11.8 g/dL (12.0-16.0); MEAN CORPUSCULAR HEMOGLOBIN 31.1 pg (28.0-32.0); MEAN CORPUSCULAR VOLUME 94.3 fL (81.0-99.0); MEAN PLATELET VOLUME 9.7 fl (7.4-10.4); PLATELET 198 x1000/uL (130-400); RED BLOOD CELL COUNT 3.78 mill/uL (4.2-5.4); RED CELL DISTRIBUTION WIDTH 16.6 % (11.6-14.6)
[2019-08-10 11:33] LABS: PHOSPHORUS 1.4 mg/dL (2.5-4.9)
[2019-08-10 11:59] LABS: CHLORIDE 111 mEq/L (98-107)
[2019-08-10 12:02] LABS: PLATELET ESTIMATE NORMAL
[2019-08-10] MEDS: FENTANYL CITRATE/PF 1,000 MCG in SODIUM CHLORIDE 0.9% 80 ML IV PRN (15:57)
[2019-08-10] MEDS ORDERED: POTASSIUM PHOS,M-BASIC-D-BASIC 30 MMOL in DEXT 5% WATER 500 ML IV ONE (16:00)
[2019-08-10] MEDS: FAMOTIDINE 20MG TABLET PO SCH (21:11)
[2019-08-11] VITALS (92 sets, daily range): BP systolic 110–150; BP diastolic 53–100
[2019-08-11 06:06] LABS: HEMATOCRIT. 35.3 % (36.0-48.0); HEMOGLOBIN. 11.7 g/dL (12.0-16.0); MEAN CORPUSCULAR HEMOGLOBIN 31.1 pg (28.0-32.0); MEAN CORPUSCULAR VOLUME 93.7 fL (81.0-99.0); MEAN PLATELET VOLUME 9.6 fl (7.4-10.4); PLATELET 216 x1000/uL (130-400); RED BLOOD CELL COUNT 3.77 mill/uL (4.2-5.4)
[2019-08-11 06:14] LABS: CHLORIDE 111 mEq/L (98-107)
[2019-08-11] MEDS: SODIUM CHLORIDE 0.9% INJ 3ML FLUSH IVF SCH ×3 (06:32→21:59)
[2019-08-11] MEDS: DILTIAZEM HCL 30MG TABLET PO SCH ×3 (06:32→21:59)
[2019-08-11] MEDS: LEVOTHYROXINE SODIUM 25MCG TABLET PO SCH (06:32)
[2019-08-11] MEDS: MIDAZOLAM HCL 100 MG in DEXT 5% WATER 80 ML IV PRN (06:33)
[2019-08-11] MEDS: METHYLPREDNISOLONE SOD SUCC 40 MG/ML VIAL IV SCH ×2 (08:32→16:28)
[2019-08-11] MEDS: PANTOPRAZOLE SODIUM 40 MG/VIAL IV SCH (08:33)
[2019-08-11] MEDS: DOXYCYCLINE HYCLATE 100MG CAPSULE PO SCH ×2 (08:33→21:59)
[2019-08-11] MEDS: DOCUSATE SODIUM SUGAR FREE 100MG/10ML UDC NG SCH ×2 (08:33→16:28)
[2019-08-11] MEDS: FOLIC ACID 1MG TABLET PO SCH (08:33)
[2019-08-11] MEDS: APIXABAN 5 MG TABLET PO SCH ×2 (08:33→16:28)
[2019-08-11] MEDS: MAGNESIUM GLUCONATE 500MG TABLET PO SCH (08:33)
[2019-08-11] MEDS: ALBUTEROL 6.7GM HFA INHALER ORI SCH ×2 (08:35→21:00)
[2019-08-11 08:49] LABS: BG BASE EXCESS 0.5 mmol/L (-2.0-2.0); BG CARBOXYHEMOGLOBIN 0.3 % (0.5-1.5); BG DEOXYHEMOGLOBIN 0.8 % (0.0-5.0); BG FRACTION INSPIRED OXYGEN 100; BG HCO3 ACT 24.7 mmol/L (22.0-26.0); BG METHEMOGLOBIN 0.2 % (0.0-1.5); BG OXYGEN SATURATION 99.2 % (92.0-98.5); BG OXYHEMOGLOBIN 98.7 % (94.0-97.0); BG PH 7.431 (7.350-7.450); BG SAMPLE SITE RIGHT RADIAL; BG TIDAL VOLUME(mL) 450 mL; BG TOTAL HEMOGLOBIN 10.7 g/dL (12.0-18.0); BG VENT MODE VENT- PRVC; BG VENT RATE 16 set
[2019-08-11] MEDS ORDERED: FUROSEMIDE 20MG/2ML VIAL IVP NR (09:15)
[2019-08-11 10:10] LABS: PLATELET ESTIMATE NORMAL
[2019-08-11] MEDS: FAMOTIDINE 20MG TABLET PO SCH (21:59)
[2019-08-12] VITALS (76 sets, daily range): BP systolic 107–150; BP diastolic 55–85
[2019-08-12] MEDS: ALBUTEROL 6.7GM HFA INHALER ORI SCH ×2 (00:35→20:30)
[2019-08-12 05:39] LABS: HEMATOCRIT. 34.6 % (36.0-48.0); HEMOGLOBIN. 11.4 g/dL (12.0-16.0); MEAN CORPUSCULAR HEMOGLOBIN 31.1 pg (28.0-32.0); MEAN CORPUSCULAR VOLUME 94.3 fL (81.0-99.0); MEAN PLATELET VOLUME 9.4 fl (7.4-10.4); PLATELET 197 x1000/uL (130-400); RED BLOOD CELL COUNT 3.67 mill/uL (4.2-5.4); RED CELL DISTRIBUTION WIDTH 16.1 % (11.6-14.6)
[2019-08-12 05:51] LABS: CHLORIDE 110 mEq/L (98-107)
[2019-08-12 06:07] LABS: PHOSPHORUS 2.7 mg/dL (2.5-4.9)
[2019-08-12] MEDS: DILTIAZEM HCL 30MG TABLET PO SCH ×3 (06:56→21:12)
[2019-08-12] MEDS: LEVOTHYROXINE SODIUM 25MCG TABLET PO SCH (06:56)
[2019-08-12] MEDS: SODIUM CHLORIDE 0.9% INJ 3ML FLUSH IVF SCH ×3 (06:57→21:11)
[2019-08-12 07:59] LABS: PLATELET ESTIMATE NORMAL
[2019-08-12 09:01] LABS: BG CARBOXYHEMOGLOBIN 0.3 % (0.5-1.5); BG FRACTION INSPIRED OXYGEN 40; BG HCO3 ACT 28.1 mmol/L (22.0-26.0); BG METHEMOGLOBIN 0.3 % (0.0-1.5); BG OXYHEMOGLOBIN 94.4 % (94.0-97.0); BG PCO2 40.2 mmHg (35.0-45.0); BG PH 7.462 (7.350-7.450); BG PO2 79.5 mmHg (75.0-100.0); BG SAMPLE SITE RIGHT RADIAL; BG TIDAL VOLUME(mL) 450 mL; BG TOTAL HEMOGLOBIN 11.2 g/dL (12.0-18.0); BG VENT MODE VENT-PRVC; BG VENT RATE 16 set
[2019-08-12] MEDS ORDERED: FUROSEMIDE 20MG/2ML VIAL IVP SCH (09:45)
[2019-08-12] MEDS: MAGNESIUM GLUCONATE 500MG TABLET PO SCH (10:01)
[2019-08-12] MEDS: DOCUSATE SODIUM SUGAR FREE 100MG/10ML UDC NG SCH ×2 (10:01→16:45)
[2019-08-12] MEDS: DOXYCYCLINE HYCLATE 100MG CAPSULE PO SCH ×2 (10:01→21:11)
[2019-08-12] MEDS: FOLIC ACID 1MG TABLET PO SCH (10:01)
[2019-08-12] MEDS: APIXABAN 5 MG TABLET PO SCH ×2 (10:01→16:45)
[2019-08-12] MEDS: METHYLPREDNISOLONE SOD SUCC 40 MG/ML VIAL IV SCH ×2 (10:01→16:45)
[2019-08-12] MEDS: PANTOPRAZOLE SODIUM 40 MG/VIAL IV SCH (10:01)
[2019-08-12] MEDS ORDERED: LACTULOSE 20G/30ML UDC PEG NR (10:30)
[2019-08-12] MEDS: LORAZEPAM 2MG/ML CPJ IV PRN (10:42)
[2019-08-12] MEDS: MORPHINE SULFATE 2 MG/ML CPJ (NOT FOR IM USE) IV PRN (10:43)
[2019-08-12] MEDS ORDERED: DEXTROSE 50% WATER 50ML SYRINGE IV PRN (11:00)
[2019-08-12] MEDS: BLOOD SUGAR DIAGNOSTIC STRIP TEST SCH ×3 (11:15→23:12)
[2019-08-12] MEDS: INSULIN LISPRO 100 UNITS/ML SUBCUT SCH ×3 (11:18→23:14)
[2019-08-12] MEDS: FAMOTIDINE 20MG TABLET PO SCH (21:12)
[2019-08-13] VITALS (42 sets, daily range): BP systolic 88–133; BP diastolic 55–82
[2019-08-13] MEDS: ALBUTEROL 6.7GM HFA INHALER ORI SCH ×7 (00:35→20:20)
[2019-08-13] MEDS: SODIUM CHLORIDE 0.9% INJ 3ML FLUSH IVF SCH ×3 (05:16→21:05)
[2019-08-13] MEDS: BLOOD SUGAR DIAGNOSTIC STRIP TEST SCH ×3 (05:16→18:00)
[2019-08-13] MEDS: DILTIAZEM HCL 30MG TABLET PO SCH ×3 (05:20→22:53)
[2019-08-13] MEDS: INSULIN LISPRO 100 UNITS/ML SUBCUT SCH ×3 (05:25→18:07)
[2019-08-13] MEDS: LEVOTHYROXINE SODIUM 25MCG TABLET PO SCH (05:32)
[2019-08-13 06:33] LABS: CHLORIDE 109 mEq/L (98-107)
[2019-08-13 06:35] LABS: HEMATOCRIT. 33.9 % (36.0-48.0); HEMOGLOBIN. 11.1 g/dL (12.0-16.0); MEAN CORPUSCULAR HEMOGLOBIN 31.1 pg (28.0-32.0); MEAN CORPUSCULAR VOLUME 95.4 fL (81.0-99.0); MEAN PLATELET VOLUME 9.6 fl (7.4-10.4); PLATELET 200 x1000/uL (130-400); RED BLOOD CELL COUNT 3.56 mill/uL (4.2-5.4); RED CELL DISTRIBUTION WIDTH 16.2 % (11.6-14.6)
[2019-08-13] MEDS: DOXYCYCLINE HYCLATE 100MG CAPSULE PO SCH ×2 (08:00→20:17)
[2019-08-13 08:57] LABS: BG BASE EXCESS 12.1 mmol/L (-2.0-2.0); BG CARBOXYHEMOGLOBIN 0.3 % (0.5-1.5); BG DEOXYHEMOGLOBIN 5.7 % (0.0-5.0); BG METHEMOGLOBIN 0.3 % (0.0-1.5); BG OXYGEN SATURATION 94.3 % (92.0-98.5); BG OXYHEMOGLOBIN 93.7 % (94.0-97.0); BG PCO2 49.6 mmHg (35.0-45.0); BG PO2 72.5 mmHg (75.0-100.0); BG SAMPLE SITE RIGHT BRACHIAL; BG TIDAL VOLUME(mL) 450 mL; BG TOTAL HEMOGLOBIN 10.8 g/dL (12.0-18.0); BG VENT MODE VENT - A/C; BG VENT RATE 16 set
[2019-08-13] MEDS: APIXABAN 5 MG TABLET PO SCH ×2 (09:01→17:54)
[2019-08-13] MEDS: FOLIC ACID 1MG TABLET PO SCH (09:01)
[2019-08-13] MEDS: MAGNESIUM GLUCONATE 500MG TABLET PO SCH (09:01)
[2019-08-13] MEDS: DOCUSATE SODIUM SUGAR FREE 100MG/10ML UDC NG SCH ×2 (09:02→17:54)
[2019-08-13] MEDS: PANTOPRAZOLE SODIUM 40 MG/VIAL IV SCH (09:02)
[2019-08-13] MEDS: METHYLPREDNISOLONE SOD SUCC 40 MG/ML VIAL IV SCH ×2 (09:02→17:54)
[2019-08-13 09:15] LABS: PLATELET ESTIMATE NORMAL
[2019-08-13] MEDS: LORAZEPAM 2MG/ML CPJ IV PRN ×2 (18:07→23:45)
[2019-08-13] MEDS: MORPHINE SULFATE 2 MG/ML CPJ (NOT FOR IM USE) IV PRN (19:49)
[2019-08-13] MEDS: FAMOTIDINE 20MG TABLET PO SCH (20:17)
[2019-08-14] VITALS (39 sets, daily range): BP systolic 90–130; BP diastolic 54–83
[2019-08-14] MEDS: BLOOD SUGAR DIAGNOSTIC STRIP TEST SCH ×4 (00:01→18:35)
[2019-08-14] MEDS: INSULIN LISPRO 100 UNITS/ML SUBCUT SCH ×4 (00:17→18:38)
[2019-08-14] MEDS: DILTIAZEM HCL 5MG/ML 5ML VIAL IV PRN (01:25)
[2019-08-14] MEDS: DILTIAZEM HCL 30MG TABLET PO SCH ×3 (05:13→22:29)
[2019-08-14] MEDS: LEVOTHYROXINE SODIUM 25MCG TABLET PO SCH (05:13)
[2019-08-14] MEDS: ACETAMINOPHEN 650MG/20.3ML UDC GT PRN (05:13)
[2019-08-14 06:12] LABS: HEMATOCRIT. 30.4 % (36.0-48.0); MEAN CORPUSCULAR HEMOGLOBIN 30.9 pg (28.0-32.0); MEAN CORPUSCULAR VOLUME 94.2 fL (81.0-99.0); MEAN PLATELET VOLUME 9.7 fl (7.4-10.4); PLATELET 167 x1000/uL (130-400); RED BLOOD CELL COUNT 3.23 mill/uL (4.2-5.4); RED CELL DISTRIBUTION WIDTH 16.1 % (11.6-14.6)
[2019-08-14] MEDS: SODIUM CHLORIDE 0.9% INJ 3ML FLUSH IVF SCH ×3 (06:18→22:29)
[2019-08-14 06:33] LABS: CHLORIDE 108 mEq/L (98-107)
[2019-08-14 08:23] LABS: BG BASE EXCESS 5.5 mmol/L (-2.0-2.0); BG CARBOXYHEMOGLOBIN 0.3 % (0.5-1.5); BG DEOXYHEMOGLOBIN 2.1 % (0.0-5.0); BG HCO3 ACT 29.7 mmol/L (22.0-26.0); BG METHEMOGLOBIN 0.3 % (0.0-1.5); BG OXYGEN SATURATION 97.9 % (92.0-98.5); BG OXYHEMOGLOBIN 97.3 % (94.0-97.0); BG PCO2 41.9 mmHg (35.0-45.0); BG PH 7.469 (7.350-7.450); BG PO2 119.9 mmHg (75.0-100.0); BG SAMPLE SITE RIGHT BRACHIAL; BG TIDAL VOLUME(mL) 450 mL; BG VENT MODE VENT - A/C; BG VENT RATE 16 set
[2019-08-14] MEDS: ALBUTEROL 6.7GM HFA INHALER ORI SCH ×3 (08:29→21:00)
[2019-08-14] MEDS: DOCUSATE SODIUM SUGAR FREE 100MG/10ML UDC NG SCH ×2 (08:35→17:58)
[2019-08-14] MEDS: METHYLPREDNISOLONE SOD SUCC 40 MG/ML VIAL IV SCH ×2 (08:35→17:58)
[2019-08-14] MEDS: FOLIC ACID 1MG TABLET PO SCH (08:35)
[2019-08-14] MEDS: PANTOPRAZOLE SODIUM 40 MG/VIAL IV SCH (08:35)
[2019-08-14] MEDS: MAGNESIUM GLUCONATE 500MG TABLET PO SCH (08:35)
[2019-08-14] MEDS: APIXABAN 5 MG TABLET PO SCH (08:35)
[2019-08-14] MEDS: DOXYCYCLINE HYCLATE 100MG CAPSULE PO SCH ×2 (08:37→20:00)
[2019-08-14 09:55] LABS: PLATELET ESTIMATE NORMAL
[2019-08-14] MEDS ORDERED: CEFEPIME 2,000 MG in DEXT 5% WATER 100 ML IV SCH ×2 (10:30→12:00)
[2019-08-14] MEDS: MORPHINE SULFATE 2 MG/ML CPJ (NOT FOR IM USE) IV PRN (13:59)
[2019-08-14] MEDS: FAMOTIDINE 20MG TABLET PO SCH (21:00)
[2019-08-14] MEDS: ENOXAPARIN 60MG/0.6ML SYR SUBCUT SCH (21:55)
[2019-08-15] VITALS (52 sets, daily range): BP systolic 81–126; BP diastolic 46–83
[2019-08-15] MEDS: BLOOD SUGAR DIAGNOSTIC STRIP TEST SCH ×4 (00:19→18:05)
[2019-08-15] MEDS: INSULIN LISPRO 100 UNITS/ML SUBCUT SCH ×4 (00:19→18:09)
[2019-08-15] MEDS: ALBUTEROL 6.7GM HFA INHALER ORI SCH ×6 (00:40→21:30)
[2019-08-15] MEDS: MORPHINE SULFATE 2 MG/ML CPJ (NOT FOR IM USE) IV PRN (03:45)
[2019-08-15 04:49] LABS: HEMOGLOBIN. 9.7 g/dL (12.0-16.0); MEAN CORPUSCULAR HEMOGLOBIN 31.1 pg (28.0-32.0); MEAN CORPUSCULAR VOLUME 95.8 fL (81.0-99.0); MEAN PLATELET VOLUME 10.3 fl (7.4-10.4); PLATELET 151 x1000/uL (130-400); RED BLOOD CELL COUNT 3.13 mill/uL (4.2-5.4)
[2019-08-15 05:01] LABS: CHLORIDE 109 mEq/L (98-107)
[2019-08-15] MEDS: SODIUM CHLORIDE 0.9% INJ 3ML FLUSH IVF SCH ×3 (05:02→21:34)
[2019-08-15] MEDS: DILTIAZEM HCL 30MG TABLET PO SCH ×3 (05:48→21:33)
[2019-08-15] MEDS: LEVOTHYROXINE SODIUM 25MCG TABLET PO SCH (05:48)
[2019-08-15] MEDS: METHYLPREDNISOLONE SOD SUCC 40 MG/ML VIAL IV SCH ×2 (08:26→16:41)
[2019-08-15] MEDS: MAGNESIUM GLUCONATE 500MG TABLET PO SCH (08:26)
[2019-08-15] MEDS: FOLIC ACID 1MG TABLET PO SCH (08:26)
[2019-08-15] MEDS: DOCUSATE SODIUM SUGAR FREE 100MG/10ML UDC NG SCH ×2 (08:26→16:41)
[2019-08-15] MEDS: ENOXAPARIN 60MG/0.6ML SYR SUBCUT SCH ×2 (08:27→21:35)
[2019-08-15] MEDS: PANTOPRAZOLE SODIUM 40 MG/VIAL IV SCH (09:00)
[2019-08-15 09:33] LABS: BG BASE EXCESS 5.3 mmol/L (-2.0-2.0); BG CARBOXYHEMOGLOBIN 0.1 % (0.5-1.5); BG DEOXYHEMOGLOBIN 4.6 % (0.0-5.0); BG FRACTION INSPIRED OXYGEN 40; BG HCO3 ACT 29.7 mmol/L (22.0-26.0); BG METHEMOGLOBIN 0.3 % (0.0-1.5); BG OXYGEN SATURATION 95.4 % (92.0-98.5); BG PCO2 42.8 mmHg (35.0-45.0); BG PH 7.459 (7.350-7.450); BG PO2 81.5 mmHg (75.0-100.0); BG SAMPLE SITE RIGHT BRACHIAL; BG TIDAL VOLUME(mL) 450 mL; BG TOTAL HEMOGLOBIN 11.3 g/dL (12.0-18.0); BG VENT MODE VENT- PRVC; BG VENT RATE 16 set
[2019-08-15 10:43] LABS: PLATELET ESTIMATE NORMAL
[2019-08-15] MEDS: CEFEPIME 2,000 MG in DEXT 5% WATER 100 ML IV SCH (15:31)
[2019-08-15] MEDS: FAMOTIDINE 20MG TABLET PO SCH (21:35)
[2019-08-16] VITALS (68 sets, daily range): BP systolic 78–132; BP diastolic 38–78
[2019-08-16] MEDS: ALBUTEROL 6.7GM HFA INHALER ORI SCH ×3 (00:20→20:35)
[2019-08-16] MEDS: INSULIN LISPRO 100 UNITS/ML SUBCUT SCH ×4 (01:08→17:58)
[2019-08-16] MEDS: DILTIAZEM HCL 5MG/ML 5ML VIAL IV PRN ×2 (01:53→10:21)
[2019-08-16] MEDS: LORAZEPAM 2MG/ML CPJ IV PRN (04:38)
[2019-08-16] MEDS: ACETAMINOPHEN 325MG TABLET PO PRN ×2 (04:39→21:43)
[2019-08-16 05:41] LABS: HEMATOCRIT. 36.1 % (36.0-48.0); MEAN CORPUSCULAR HEMOGLOBIN 31.6 pg (28.0-32.0); MEAN CORPUSCULAR VOLUME 95.4 fL (81.0-99.0); MEAN PLATELET VOLUME 11.3 fl (7.4-10.4); PLATELET 174 x1000/uL (130-400); RED BLOOD CELL COUNT 3.78 mill/uL (4.2-5.4)
[2019-08-16] MEDS: BLOOD SUGAR DIAGNOSTIC STRIP TEST SCH ×4 (06:00→17:43)
[2019-08-16] MEDS: SODIUM CHLORIDE 0.9% INJ 3ML FLUSH IVF SCH ×3 (06:00→21:37)
[2019-08-16 06:03] LABS: CHLORIDE 107 mEq/L (98-107)
[2019-08-16 06:16] LABS: PHOSPHORUS 3.1 mg/dL (2.5-4.9)
[2019-08-16 06:56] LABS: C REACTIVE PROTEIN QUANT > 190.0 mg/L (0.0-3.0)
[2019-08-16] MEDS: LEVOTHYROXINE SODIUM 25MCG TABLET PO SCH (07:12)
[2019-08-16] MEDS: DILTIAZEM HCL 30MG TABLET PO SCH ×3 (07:13→17:54)
[2019-08-16] MEDS: DOCUSATE SODIUM SUGAR FREE 100MG/10ML UDC NG SCH ×2 (08:27→17:42)
[2019-08-16] MEDS: PANTOPRAZOLE SODIUM 40 MG/VIAL IV SCH (08:27)
[2019-08-16] MEDS: MAGNESIUM GLUCONATE 500MG TABLET PO SCH (08:27)
[2019-08-16] MEDS: METHYLPREDNISOLONE SOD SUCC 40 MG/ML VIAL IV SCH (08:27)
[2019-08-16] MEDS: ENOXAPARIN 60MG/0.6ML SYR SUBCUT SCH ×2 (08:28→21:36)
[2019-08-16] MEDS: FOLIC ACID 1MG TABLET PO SCH (08:28)
[2019-08-16] MEDS: MORPHINE SULFATE 2 MG/ML CPJ (NOT FOR IM USE) IV PRN (08:30)
[2019-08-16 08:57] LABS: BG CARBOXYHEMOGLOBIN 0.2 % (0.5-1.5); BG DEOXYHEMOGLOBIN 3.3 % (0.0-5.0); BG HCO3 ACT 28.7 mmol/L (22.0-26.0); BG METHEMOGLOBIN 0.3 % (0.0-1.5); BG OXYGEN SATURATION 96.7 % (92.0-98.5); BG OXYHEMOGLOBIN 96.2 % (94.0-97.0); BG PCO2 38.8 mmHg (35.0-45.0); BG PH 7.487 (7.350-7.450); BG PO2 89.3 mmHg (75.0-100.0); BG SAMPLE SITE RIGHT RADIAL; BG TIDAL VOLUME(mL) 450 mL; BG TOTAL HEMOGLOBIN 11.2 g/dL (12.0-18.0); BG VENT MODE VENT - A/C; BG VENT RATE 16 set
[2019-08-16] MEDS: ACETYLCYSTEINE 100MG/ML 10% VIAL 4ML INH SCH ×3 (12:03→20:25)
[2019-08-16] MEDS: IPRATROPIUM/ALBUTEROL 0.5-3(2.5)MG/3ML NEB HHN SCH ×2 (12:03→15:37)
[2019-08-16 13:18] LABS: PLATELET ESTIMATE NORMAL
[2019-08-16] MEDS ORDERED: DIGOXIN 500MCG/2ML AMP IV NR ×3 (13:30→18:00)
[2019-08-16] MEDS ORDERED: DILTIAZEM HCL 30MG TABLET PO SCH (14:00)
[2019-08-16] MEDS: CEFEPIME 2,000 MG in DEXT 5% WATER 100 ML IV SCH (14:07)
[2019-08-16] MEDS ORDERED: BISACODYL 10MG SUPP PR PRN (17:30)
[2019-08-16] MEDS ORDERED: BISACODYL 5MG TABLET PO PRN (17:30)
[2019-08-16] MEDS: DIGOXIN 125MCG TABLET PO SCH (17:58)
[2019-08-16] MEDS: SENNOSIDES/DOCUSATE SOD 8.6/50MG TABLET PO PRN (21:36)
[2019-08-16] MEDS: FAMOTIDINE 20MG TABLET PO SCH (21:36)
[2019-08-17] VITALS (67 sets, daily range): BP systolic 83–131; BP diastolic 46–73
[2019-08-17] MEDS: BLOOD SUGAR DIAGNOSTIC STRIP TEST SCH ×4 (00:33→18:29)
[2019-08-17] MEDS: INSULIN LISPRO 100 UNITS/ML SUBCUT SCH ×4 (06:00→18:30)
[2019-08-17 06:12] LABS: HEMATOCRIT. 31.5 % (36.0-48.0); HEMOGLOBIN. 10.3 g/dL (12.0-16.0); MEAN CORPUSCULAR HEMOGLOBIN 31.2 pg (28.0-32.0); MEAN CORPUSCULAR VOLUME 95.4 fL (81.0-99.0); MEAN PLATELET VOLUME 11.4 fl (7.4-10.4); PLATELET 147 x1000/uL (130-400); RED BLOOD CELL COUNT 3.31 mill/uL (4.2-5.4); RED CELL DISTRIBUTION WIDTH 16.3 % (11.6-14.6)
[2019-08-17] MEDS: ACETAMINOPHEN 325MG TABLET PO PRN ×2 (06:14→17:02)
[2019-08-17] MEDS: DILTIAZEM HCL 30MG TABLET PO SCH ×4 (06:15→18:00)
[2019-08-17] MEDS: LEVOTHYROXINE SODIUM 25MCG TABLET PO SCH (06:15)
[2019-08-17] MEDS: SODIUM CHLORIDE 0.9% INJ 3ML FLUSH IVF SCH ×3 (06:15→21:20)
[2019-08-17 06:19] LABS: PHOSPHORUS 3.5 mg/dL (2.5-4.9)
[2019-08-17 07:38] LABS: PLATELET ESTIMATE NORMAL
[2019-08-17 08:55] LABS: BG BASE EXCESS 3.9 mmol/L (-2.0-2.0); BG CARBOXYHEMOGLOBIN 0.3 % (0.5-1.5); BG DEOXYHEMOGLOBIN 1.5 % (0.0-5.0); BG FRACTION INSPIRED OXYGEN 40; BG HCO3 ACT 27.7 mmol/L (22.0-26.0); BG METHEMOGLOBIN 0.3 % (0.0-1.5); BG OXYGEN SATURATION 98.5 % (92.0-98.5); BG OXYHEMOGLOBIN 97.9 % (94.0-97.0); BG PO2 134.2 mmHg (75.0-100.0); BG SAMPLE SITE RIGHT RADIAL; BG TIDAL VOLUME(mL) 450 mL; BG TOTAL HEMOGLOBIN 10.4 g/dL (12.0-18.0); BG VENT MODE VENT- PRVC; BG VENT RATE 25 set
[2019-08-17] MEDS: PANTOPRAZOLE SODIUM 40 MG/VIAL IV SCH (09:34)
[2019-08-17] MEDS: METHYLPREDNISOLONE SOD SUCC 40 MG/ML VIAL IV SCH (09:35)
[2019-08-17] MEDS: DOCUSATE SODIUM SUGAR FREE 100MG/10ML UDC NG SCH ×2 (09:35→16:45)
[2019-08-17] MEDS: FOLIC ACID 1MG TABLET PO SCH (09:35)
[2019-08-17] MEDS: MAGNESIUM GLUCONATE 500MG TABLET PO SCH (09:45)
[2019-08-17] MEDS: ENOXAPARIN 60MG/0.6ML SYR SUBCUT SCH ×2 (09:48→21:18)
[2019-08-17] MEDS: ACETAMINOPHEN 650MG/20.3ML UDC GT PRN (10:09)
[2019-08-17] MEDS: CEFEPIME 2,000 MG in DEXT 5% WATER 100 ML IV SCH (14:53)
[2019-08-17] MEDS: ALBUTEROL 6.7GM HFA INHALER ORI SCH (15:20)
[2019-08-17] MEDS: DIGOXIN 125MCG TABLET PO SCH (18:00)
[2019-08-17] MEDS: FAMOTIDINE 20MG TABLET PO SCH (21:18)
[2019-08-17] MEDS: SENNOSIDES/DOCUSATE SOD 8.6/50MG TABLET PO PRN (21:18)
[2019-08-18] VITALS (35 sets, daily range): BP systolic 75–127; BP diastolic 42–65
[2019-08-18] MEDS: BLOOD SUGAR DIAGNOSTIC STRIP TEST SCH ×5 (00:37→23:23)
[2019-08-18 05:42] LABS: HEMATOCRIT. 35.5 % (36.0-48.0); HEMOGLOBIN. 11.7 g/dL (12.0-16.0); MEAN CORPUSCULAR HEMOGLOBIN 31.8 pg (28.0-32.0); MEAN CORPUSCULAR VOLUME 96.6 fL (81.0-99.0); MEAN PLATELET VOLUME 11.2 fl (7.4-10.4); PLATELET 153 x1000/uL (130-400); RED BLOOD CELL COUNT 3.68 mill/uL (4.2-5.4); RED CELL DISTRIBUTION WIDTH 16.7 % (11.6-14.6)
[2019-08-18 05:49] LABS: CHLORIDE 113 mEq/L (98-107)
[2019-08-18 05:56] LABS: PHOSPHORUS 3.5 mg/dL (2.5-4.9)
[2019-08-18] MEDS: INSULIN LISPRO 100 UNITS/ML SUBCUT SCH ×5 (06:00→23:23)
[2019-08-18] MEDS: DILTIAZEM HCL 30MG TABLET PO SCH ×5 (06:00→23:16)
[2019-08-18] MEDS: SODIUM CHLORIDE 0.9% INJ 3ML FLUSH IVF SCH ×3 (06:29→21:34)
[2019-08-18] MEDS: LEVOTHYROXINE SODIUM 25MCG TABLET PO SCH (06:41)
[2019-08-18 07:22] LABS: PLATELET ESTIMATE NORMAL
[2019-08-18 09:24] LABS: BG BASE EXCESS 0.9 mmol/L (-2.0-2.0); BG CARBOXYHEMOGLOBIN 0.6 % (0.5-1.5); BG DEOXYHEMOGLOBIN 1.1 % (0.0-5.0); BG FRACTION INSPIRED OXYGEN 40; BG HCO3 ACT 24.7 mmol/L (22.0-26.0); BG METHEMOGLOBIN 0.2 % (0.0-1.5); BG OXYGEN SATURATION 98.9 % (92.0-98.5); BG OXYHEMOGLOBIN 98.1 % (94.0-97.0); BG PCO2 36.6 mmHg (35.0-45.0); BG PH 7.447 (7.350-7.450); BG PO2 150.4 mmHg (75.0-100.0); BG SAMPLE SITE RIGHT RADIAL; BG TIDAL VOLUME(mL) 450 mL; BG TOTAL HEMOGLOBIN 12.9 g/dL (12.0-18.0); BG VENT MODE VENT- PRVC; BG VENT RATE 16 set
[2019-08-18] MEDS: FOLIC ACID 1MG TABLET PO SCH (09:59)
[2019-08-18] MEDS: MAGNESIUM GLUCONATE 500MG TABLET PO SCH (09:59)
[2019-08-18] MEDS: DOCUSATE SODIUM SUGAR FREE 100MG/10ML UDC NG SCH ×2 (09:59→17:01)
[2019-08-18] MEDS: METHYLPREDNISOLONE SOD SUCC 40 MG/ML VIAL IV SCH (09:59)
[2019-08-18] MEDS: ENOXAPARIN 60MG/0.6ML SYR SUBCUT SCH ×2 (09:59→20:34)
[2019-08-18] MEDS: PANTOPRAZOLE SODIUM 40 MG/VIAL IV SCH (09:59)
[2019-08-18] MEDS: DIGOXIN 500MCG/2ML AMP IV SCH ×2 (12:45→17:24)
[2019-08-18] MEDS: CEFEPIME 2,000 MG in DEXT 5% WATER 100 ML IV SCH (15:03)
[2019-08-18] MEDS: ALBUTEROL 6.7GM HFA INHALER ORI SCH ×2 (15:22→21:10)
[2019-08-18] MEDS: DIGOXIN 125MCG TABLET PO SCH (17:18)
[2019-08-18] MEDS: FAMOTIDINE 20MG TABLET PO SCH (20:33)
[2019-08-19] VITALS (42 sets, daily range): BP systolic 85–124; BP diastolic 44–70
[2019-08-19] MEDS: ALBUTEROL 6.7GM HFA INHALER ORI SCH ×6 (00:50→16:05)
[2019-08-19] MEDS: DILTIAZEM HCL 30MG TABLET PO SCH ×4 (05:14→23:49)
[2019-08-19] MEDS: SODIUM CHLORIDE 0.9% INJ 3ML FLUSH IVF SCH ×3 (05:14→21:04)
[2019-08-19] MEDS: INSULIN LISPRO 100 UNITS/ML SUBCUT SCH ×3 (05:26→17:42)
[2019-08-19] MEDS: BLOOD SUGAR DIAGNOSTIC STRIP TEST SCH ×3 (05:26→17:42)
[2019-08-19] MEDS: LEVOTHYROXINE SODIUM 25MCG TABLET PO SCH (05:28)
[2019-08-19 05:33] LABS: HEMATOCRIT. 37.7 % (36.0-48.0); HEMOGLOBIN. 12.4 g/dL (12.0-16.0); MEAN CORPUSCULAR HEMOGLOBIN 31.6 pg (28.0-32.0); MEAN CORPUSCULAR VOLUME 96.3 fL (81.0-99.0); MEAN PLATELET VOLUME 12.2 fl (7.4-10.4); PLATELET 193 x1000/uL (130-400); RED BLOOD CELL COUNT 3.92 mill/uL (4.2-5.4); RED CELL DISTRIBUTION WIDTH 16.7 % (11.6-14.6)
[2019-08-19 06:00] LABS: PHOSPHORUS 4.1 mg/dL (2.5-4.9)
[2019-08-19 08:27] LABS: ATYPICAL LYMPHOCYTES 3; PLATELET ESTIMATE NORMAL
[2019-08-19] MEDS: SODIUM CHLORIDE 0.45% 1,000 ML IV SCH (08:54)
[2019-08-19] MEDS: DOCUSATE SODIUM SUGAR FREE 100MG/10ML UDC NG SCH ×2 (08:55→17:42)
[2019-08-19] MEDS: MAGNESIUM GLUCONATE 500MG TABLET PO SCH (08:55)
[2019-08-19] MEDS: FOLIC ACID 1MG TABLET PO SCH (08:55)
[2019-08-19] MEDS: PANTOPRAZOLE SODIUM 40 MG/VIAL IV SCH (08:55)
[2019-08-19 08:57] LABS: DIGOXIN 5.2 ng/mL (0.9-2.0)
[2019-08-19] MEDS: ENOXAPARIN 60MG/0.6ML SYR SUBCUT SCH ×2 (08:58→21:03)
[2019-08-19] MEDS ORDERED: LACTULOSE 20G/30ML UDC PO PRN (09:00)
[2019-08-19 09:41] LABS: BG BASE EXCESS 1.6 mmol/L (-2.0-2.0); BG CARBOXYHEMOGLOBIN 0.6 % (0.5-1.5); BG DEOXYHEMOGLOBIN 6.2 % (0.0-5.0); BG FRACTION INSPIRED OXYGEN 40; BG HCO3 ACT 24.3 mmol/L (22.0-26.0); BG METHEMOGLOBIN 0.1 % (0.0-1.5); BG OXYGEN SATURATION 93.8 % (92.0-98.5); BG OXYHEMOGLOBIN 93.1 % (94.0-97.0); BG PCO2 32.2 mmHg (35.0-45.0); BG PH 7.495 (7.350-7.450); BG PO2 66.8 mmHg (75.0-100.0); BG SAMPLE SITE LEFT RADIAL; BG TIDAL VOLUME(mL) 450 mL; BG TOTAL HEMOGLOBIN 12.8 g/dL (12.0-18.0); BG VENT MODE VENT- PRVC; BG VENT RATE 16 set
[2019-08-19] MEDS: CEFEPIME 2,000 MG in DEXT 5% WATER 100 ML IV SCH (14:35)
[2019-08-19] MEDS: FAMOTIDINE 20MG TABLET PO SCH (21:03)
[2019-08-20] VITALS (94 sets, daily range): BP systolic 67–122; BP diastolic 36–75
[2019-08-20] MEDS: BLOOD SUGAR DIAGNOSTIC STRIP TEST SCH ×4 (00:21→18:01)
[2019-08-20] MEDS: INSULIN LISPRO 100 UNITS/ML SUBCUT SCH ×4 (00:21→18:00)
[2019-08-20] MEDS: DILTIAZEM HCL 30MG TABLET PO SCH ×3 (05:48→16:10)
[2019-08-20] MEDS: SODIUM CHLORIDE 0.9% INJ 3ML FLUSH IVF SCH ×3 (05:53→22:53)
[2019-08-20] MEDS: LEVOTHYROXINE SODIUM 25MCG TABLET PO SCH (05:57)
[2019-08-20] MEDS: SODIUM CHLORIDE 0.45% 1,000 ML IV SCH (05:59)
[2019-08-20 06:21] LABS: HEMATOCRIT. 34.1 % (36.0-48.0); HEMOGLOBIN. 11.4 g/dL (12.0-16.0); MEAN CORPUSCULAR HEMOGLOBIN 32.1 pg (28.0-32.0); MEAN CORPUSCULAR VOLUME 95.7 fL (81.0-99.0); MEAN PLATELET VOLUME 11.6 fl (7.4-10.4); PLATELET 188 x1000/uL (130-400); RED BLOOD CELL COUNT 3.56 mill/uL (4.2-5.4); RED CELL DISTRIBUTION WIDTH 17.1 % (11.6-14.6)
[2019-08-20 06:35] LABS: PHOSPHORUS 5.5 mg/dL (2.5-4.9)
[2019-08-20 08:52] LABS: BG BASE EXCESS -1.9 mmol/L (-2.0-2.0); BG CARBOXYHEMOGLOBIN 0.3 % (0.5-1.5); BG DEOXYHEMOGLOBIN 1.9 % (0.0-5.0); BG FRACTION INSPIRED OXYGEN 40; BG HCO3 ACT 21.2 mmol/L (22.0-26.0); BG METHEMOGLOBIN 0.2 % (0.0-1.5); BG OXYGEN SATURATION 98.1 % (92.0-98.5); BG OXYHEMOGLOBIN 97.6 % (94.0-97.0); BG PCO2 31.2 mmHg (35.0-45.0); BG PO2 120.7 mmHg (75.0-100.0); BG SAMPLE SITE RIGHT RADIAL; BG TIDAL VOLUME(mL) 450 mL; BG TOTAL HEMOGLOBIN 12.7 g/dL (12.0-18.0); BG VENT MODE PRVC; BG VENT RATE 12 set
[2019-08-20] MEDS: DOCUSATE SODIUM SUGAR FREE 100MG/10ML UDC NG SCH ×2 (09:44→18:01)
[2019-08-20] MEDS: ENOXAPARIN 60MG/0.6ML SYR SUBCUT SCH (09:44)
[2019-08-20] MEDS: FOLIC ACID 1MG TABLET PO SCH (09:44)
[2019-08-20] MEDS: PANTOPRAZOLE SODIUM 40 MG/VIAL IV SCH (09:44)
[2019-08-20 10:44] LABS: PLATELET ESTIMATE NORMAL
[2019-08-20] MEDS: ALBUTEROL 6.7GM HFA INHALER ORI SCH ×4 (11:40→15:40)
[2019-08-20] MEDS: SODIUM CHLORIDE 0.9% 1,000 ML IV SCH ×2 (13:30→23:15)
[2019-08-20] MEDS: NOREPINEPHRINE 4 MG in DEXT 5% WATER 246 ML IV PRN (13:31)
[2019-08-20] MEDS: FAMOTIDINE 20MG TABLET PO SCH (21:28)
[2019-08-21] VITALS (93 sets, daily range): BP systolic 75–134; BP diastolic 40–72
[2019-08-21] MEDS: BLOOD SUGAR DIAGNOSTIC STRIP TEST SCH ×5 (00:56→23:55)
[2019-08-21 05:00] LABS: HEMATOCRIT. 33.7 % (36.0-48.0); HEMOGLOBIN. 11.1 g/dL (12.0-16.0); MEAN CORPUSCULAR HEMOGLOBIN 31.7 pg (28.0-32.0); MEAN CORPUSCULAR VOLUME 95.9 fL (81.0-99.0); MEAN PLATELET VOLUME 11.8 fl (7.4-10.4); PLATELET 168 x1000/uL (130-400); RED BLOOD CELL COUNT 3.52 mill/uL (4.2-5.4); RED CELL DISTRIBUTION WIDTH 16.9 % (11.6-14.6)
[2019-08-21] MEDS: INSULIN LISPRO 100 UNITS/ML SUBCUT SCH ×5 (06:00→23:55)
[2019-08-21] MEDS: SODIUM CHLORIDE 0.9% INJ 3ML FLUSH IVF SCH ×3 (06:16→22:02)
[2019-08-21] MEDS: DILTIAZEM HCL 30MG TABLET PO SCH ×5 (06:16→23:56)
[2019-08-21] MEDS: LEVOTHYROXINE SODIUM 25MCG TABLET PO SCH (06:22)
[2019-08-21 08:06] LABS: PLATELET ESTIMATE NORMAL
[2019-08-21] MEDS: DOCUSATE SODIUM SUGAR FREE 100MG/10ML UDC NG SCH ×2 (08:30→16:24)
[2019-08-21] MEDS: FOLIC ACID 1MG TABLET PO SCH (08:30)
[2019-08-21] MEDS: PANTOPRAZOLE SODIUM 40 MG/VIAL IV SCH (08:30)
[2019-08-21] MEDS: SODIUM CHLORIDE 0.9% 1,000 ML IV SCH (08:31)
[2019-08-21] MEDS ORDERED: ENOXAPARIN 60MG/0.6ML SYR SUBCUT SCH (09:00)
[2019-08-21] MEDS: SODIUM CHLORIDE 0.45% 1,000 ML IV SCH ×2 (10:19→20:00)
[2019-08-21] MEDS: NOREPINEPHRINE 4 MG in DEXT 5% WATER 246 ML IV PRN (16:24)
[2019-08-21] MEDS: FAMOTIDINE 20MG TABLET PO SCH (21:57)
[2019-08-22] VITALS (70 sets, daily range): BP systolic 61–140; BP diastolic 28–69
[2019-08-22 05:45] LABS: HEMATOCRIT. 31.5 % (36.0-48.0); HEMOGLOBIN. 10.6 g/dL (12.0-16.0); MEAN CORPUSCULAR HEMOGLOBIN 32.2 pg (28.0-32.0); MEAN PLATELET VOLUME 11.5 fl (7.4-10.4); PLATELET 182 x1000/uL (130-400); RED BLOOD CELL COUNT 3.28 mill/uL (4.2-5.4); RED CELL DISTRIBUTION WIDTH 17.1 % (11.6-14.6)
[2019-08-22] MEDS: INSULIN LISPRO 100 UNITS/ML SUBCUT SCH (06:00)
[2019-08-22 06:09] LABS: PHOSPHORUS 4.6 mg/dL (2.5-4.9)
[2019-08-22] MEDS: DILTIAZEM HCL 30MG TABLET PO SCH (06:16)
[2019-08-22] MEDS: SODIUM CHLORIDE 0.45% 1,000 ML IV SCH (06:16)
[2019-08-22] MEDS: SODIUM CHLORIDE 0.9% INJ 3ML FLUSH IVF SCH (06:16)
[2019-08-22] MEDS: BLOOD SUGAR DIAGNOSTIC STRIP TEST SCH (06:17)
[2019-08-22] MEDS: LEVOTHYROXINE SODIUM 25MCG TABLET PO SCH (06:17)
[2019-08-22] MEDS: NOREPINEPHRINE 4 MG in DEXT 5% WATER 246 ML IV PRN (06:18)
[2019-08-22] MEDS: PANTOPRAZOLE SODIUM 40 MG/VIAL IV SCH (09:24)
[2019-08-22] MEDS: FOLIC ACID 1MG TABLET PO SCH (09:24)
[2019-08-22] MEDS: DOCUSATE SODIUM SUGAR FREE 100MG/10ML UDC NG SCH (09:24)
[2019-08-22] MEDS: ALBUTEROL 6.7GM HFA INHALER ORI SCH ×2 (09:30→11:30)
[2019-08-22] MEDS ORDERED: POTASSIUM CHLORIDE 20MEQ/PACKET PO SCH (11:00)
[2019-08-22] MEDS ORDERED: SODIUM CHL 0.45% + KCL 20MEQ/L 1,000 ML IV SCH (12:00)
[2019-08-22] MEDS ORDERED: KCL 20MEQ/100ML PREMIX 100 ML IV SCH (12:00)
[2019-08-22 12:17] LABS: PLATELET ESTIMATE NORMAL
[2019-08-22] MEDS ORDERED: MORPHINE SULFATE 250 MG in DEXT 5% WATER 240 ML IV PRN (13:00)
[2019-08-22] MEDS ORDERED: ENOXAPARIN 60MG/0.6ML SYR SUBCUT SCH (21:00)
[2019-08-23] VITALS: BP 58/28
[2019-08-23 00:30] VITALS: BP 52/28
[2019-08-23 01:00] VITALS: BP 55/26
[2019-08-23 02:00] VITALS: BP 55/26
[2019-08-23 03:00] VITALS: BP 56/25
[2019-08-23 04:00] VITALS: BP 54/26
[2019-08-23 05:50] LABS: HEMOGLOBIN. 10.1 g/dL (12.0-16.0); MEAN CORPUSCULAR HEMOGLOBIN 32.3 pg (28.0-32.0); MEAN CORPUSCULAR VOLUME 102.7 fL (81.0-99.0); MEAN PLATELET VOLUME 11.1 fl (7.4-10.4); PLATELET 224 x1000/uL (130-400); RED BLOOD CELL COUNT 3.12 mill/uL (4.2-5.4); RED CELL DISTRIBUTION WIDTH 17.5 % (11.6-14.6)
[2019-08-23 06:48] LABS: DIGOXIN 3.4 ng/mL (0.9-2.0); PHOSPHORUS 9.4 mg/dL (2.5-4.9)
[2019-08-23 11:34] LABS: PLATELET ESTIMATE NORMAL
== END 2019-08-23 04:42 | disposition expired | DRG 870 ==
LOC: ER 08:19 → 7WST 09:57 → ENRESERV 14:03 → MICUNO 08-05 20:40 → MICUSO 08-19 13:09
PROVIDERS: ADMIT Family Medicine; ATTEND Family Medicine
PROC: 5A1955Z Respiratory Ventilation, Greater than 96 Consecutive Hours (ICD-10-PCS; principal; 2019-08-07)
PROC: 0BH17EZ Insertion of Endotracheal Airway into Trachea, Via Natural or Artificial Opening (ICD-10-PCS; 2019-08-07)
PROC: 02HV33Z Insertion of Infusion Device into Superior Vena Cava, Percutaneous Approach (ICD-10-PCS; 2019-08-07)
PROC: B548ZZA Ultrasonography of Superior Vena Cava, Guidance (ICD-10-PCS; 2019-08-07)
DX: A41.89 Other specified sepsis (principal); U07.1 COVID-19; J12.89 Other viral pneumonia; J96.01 Acute respiratory failure with hypoxia; R65.21 Severe sepsis with septic shock; G92 Toxic encephalopathy; I50.33 Acute on chronic diastolic (congestive) heart failure; I42.9 Cardiomyopathy, unspecified; I48.20 Chronic atrial fibrillation, unspecified; N39.0 Urinary tract infection, site not specified; E44.0 Moderate protein-calorie malnutrition; N17.9 Acute kidney failure, unspecified; D68.59 Other primary thrombophilia; E87.0 Hyperosmolality and hypernatremia; I13.0 Hypertensive heart and chronic kidney disease with heart failure and stage 1 through stage 4 chronic kidney disease, or unspecified chronic kidney disease; J44.0 Chronic obstructive pulmonary disease with (acute) lower respiratory infection; F31.9 Bipolar disorder, unspecified; I25.10 Atherosclerotic heart disease of native coronary artery without angina pectoris; N18.3 Chronic kidney disease, stage 3 (moderate); K21.9 Gastro-esophageal reflux disease without esophagitis; D64.9 Anemia, unspecified; F20.9 Schizophrenia, unspecified; F17.210 Nicotine dependence, cigarettes, uncomplicated; I27.29 Other secondary pulmonary hypertension; E03.9 Hypothyroidism, unspecified; E66.9 Obesity, unspecified; R74.8 Abnormal levels of other serum enzymes; E11.22 Type 2 diabetes mellitus with diabetic chronic kidney disease; E11.51 Type 2 diabetes mellitus with diabetic peripheral angiopathy without gangrene; Z51.5 Encounter for palliative care; Z79.84 Long term (current) use of oral hypoglycemic drugs; Z79.890 Hormone replacement therapy; Z79.01 Long term (current) use of anticoagulants; Z79.899 Other long term (current) drug therapy; Z95.5 Presence of coronary angioplasty implant and graft; Z99.81 Dependence on supplemental oxygen; Z68.28 Body mass index [BMI] 28.0-28.9, adult; Z86.711 Personal history of pulmonary embolism
CPT/HCPCS: 36415; 36600; 71045; 74018; 76937; 80048; 80053; 80061; 80162; 81003; 82043; 82140; 82375; 82550; 82553; 82570; 82728; 82805; 82962; 83036; 83605; 83615; 83735; 83880; 83935; 84100; 84145; 84155; 84165; 84300; 84478; 84484; 84550; 85025; 85379; 85384; 86140; 87070; 87804; 93005; 94003; 94640; 99291; C1725; C9113; J0692; J0696; J1160; J1650; J1815; J1940; J2060; J2250; J2270; J2704; J2920; J3010; J3480; J3490; J7030; J7050; J7060; J7608; P9047; U0003-CS